=== PATIENT | female | born 1980 | race African-American/Black ===

== ENCOUNTER 2017-07-31 16:56 | Outpatient (CLI) | payer OTHER | END 2017-07-31 16:57 | disposition critical access hospital (66) | LOC: EMS 16:56 | PROVIDERS: ATTEND Surgery | DX: R51 Headache (principal) | CPT/HCPCS: A0425; A0429 ==

== ENCOUNTER 2017-07-31 17:30 | Emergency (ER) | payer OTHER ==
--- NOTE | 2017-07-31 17:39 | ED Physician Documentation ---
PD HPI HEADACHE - Stated complaint Stated Complaint: PRITCHARD - Chief complaint Chief Complaint: Neuro - History obtained from History obtained from: Patient, EMS - History of Present Illness Timing - onset: How many weeks ago (2 weeks of intermittent headache which has worsened and become persistent the past 2-3 days. Has nausea, light sensitivity , feeling of general weakness. No focal weakness. No injury. No fever nor URI symptoms.) Timing - onset during: Rest Timing - details: Gradual onset, Still present, Waxing and waning Worst headache ever?: Worst headache ever? (has had intermittent headaches with or without nausea and photophobia, with this one more persistent than prior ones.) Location: Front, Right Quality: Throbbing, Aching Associated symptoms: Nausea. No: Fever, Stiff neck, Vomiting, Weakness, Numbness, Vision changes Improved by: Rest, Dark room Worsened by: Light, Noise Contributing factors: No: Hypertension, Recent illness, Trauma Recently seen: Not recently seen Review of Systems Constitutional: denies: Fever, Chills Nose: denies: Rhinorrhea / runny nose, Congestion Throat: denies: Sore throat Respiratory: denies: Cough GI: reports: Nausea. denies: Abdominal Pain, Vomiting, Diarrhea Neurologic: reports: Generalized weakness. 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 - Present Medications Home Medications: Ambulatory Orders Medication Instructions Recorded Confirmed Aspirin/Acetaminophen/Caffeine 1 each PO .FREQ 07/31/17 07/31/17 [Excedrin Migraine Caplet] Dexamethasone [Decadron] 4 mg PO DAILY #5 tablet 07/31/17 HYDROcod/ACETAM 5/325 [Midnight 5/325] 1 tab PO Q6H PRN #15 tablet 07/31/17 Ondansetron Odt [Zofran] 4 mg TL Q6H PRN #15 tablet 07/31/17 - Allergies Allergies/Adverse Reactions: Allergies Allergy/AdvReac Type Severity Reaction Status Date / Time No Known Drug Allergies Allergy Verified 07/31/17 17:35 - Social History Does the pt smoke?: No Smoking Status: Never smoker Does the pt drink ETOH?: No Does the pt have substance abuse?: No - Immunizations Immunizations are current?: Yes PD ED PE NORMAL - General General: Alert and oriented X 3, Well developed/nourished, Other (light sensitive, seems uncomfortable. ) - HEENT HEENT: Atraumatic, PERRL, EOMI, Moist mucous membranes, Pharynx benign - Neck Neck: Supple, no meningeal sign, No adenopathy - Cardiac Cardiac: RRR, No murmur - Respiratory Respiratory: Clear bilaterally - Abdomen Abdomen: Soft, Non tender - Back Back: No CVA TTP - Derm Derm: Normal color, Warm and dry - Extremities Extremities: No deformity, No tenderness to palpate, Normal ROM s pain, No edema - Neuro Neuro: Alert and oriented X 3, crumb packer 2-12 intact, No motor deficit, No sensory deficit, Normal speech, Other Eye Opening: Spontaneous Motor: Obeys Commands Verbal: Oriented GCS Score: 15 - Psych Psych: Normal mood. No: Normal affect (somewhat flat) Results - Vitals Vitals: Vital Signs - 24 hr 07/31/17 07/31/17 17:32 20:14 Temperature 37.0 C 36.6 C Heart Rate 64 61 Respiratory 16 16 Rate Blood Pressure 122/82 H 124/73 O2 Saturation 100 100 Oxygen O2 Source Room air - Labs Labs: Laboratory Tests 07/31/17 07/31/17 07/31/17 18:05 18:05 18:05 WBC 9.4 RBC 4.39 Hgb 13.7 Hct 39.5 MCV 89.9 MCH 31.3 H MCHC 34.8 RDW 13.4 Plt Count 239 MPV 7.8 L Neut # 5.6 Lymph # 2.9 [place] # 0.7 Eos # 0.1 Baso # 0.1 Absolute Nucleated RBC 0.00 Nucleated RBC % 0.0 ESR 18 Sodium 138 Potassium 3.8 Chloride 103 Carbon Dioxide 24 Anion Gap 11.0 BUN 12 Creatinine 0.9 Estimated GFR (MDRD) 85 L Glucose 102 H Calcium 9.6 Total Bilirubin 0.9 AST 17 ALT 17 Alkaline Phosphatase 36 L Total Protein 7.5 Albumin 4.1 Globulin 3.4 Albumin/Globulin Ratio 1.2 Lipase 27 - Rads (name of study) head CT Radiology: Prelim report reviewed (no acute process) PD MEDICAL DECISION MAKING - ED course Complexity details: reviewed results, re-evaluated patient (Patient declined Toradol as avoids NSAIDs (I opined to her that a single dose of toradol would not significantly affect renal function). She did not want any meds that "make me feel drugged". So did not give antimigraine antiemetics nor opioid meds. Not much improvement with Ofirmev (like Tylenol at home earlier in the day). I offered Rx for meds, if she wanted later. Can try steroids to see if improves headache over course of this evening into tomorrow. ), considered differential ( presume functional headache such as migraine. Head CT and labs are okay. No trauma so not concussive; no infectious symptoms to suggest need for LP.), d/w patient Departure - Departure Disposition: Home, Self Care Clinical Impression: Headache Qualifiers: Headache type: unspecified Headache chronicity pattern: acute headache Intractability: intractable Qualified Code(s): R51 - Headache Condition: Stable Record reviewed to determine appropriate education?: Yes Instructions: ED Cephalgia Unspecified, ED Headache Migraine Follow-Up: AUGUST GOMEZ [Primary Care Provider] - Prescriptions: Dexamethasone [Decadron] 4 mg PO DAILY #5 tablet HYDROcod/ACETAM 5/325 [Midnight 5/325] 1 tab PO Q6H PRN #15 tablet PRN Reason: Pain Ondansetron Odt [Zofran] 4 mg TL Q6H PRN #15 tablet PRN Reason: Nausea / Vomiting Comments: Drink lots of fluids. Tylenol if needed for headache. Ondansetron if needed for nausea. I would suggest Decadron steroid daily for the next several days as this would treat migraine type headaches. He should not make you feel sedated or medicated. If your headache is significant enough to need stronger medicine, I prescribed hydrocodone to use every 4-6 hours for the short-term. This will make you feel sleepy. Recheck with your primary if not improved over the next couple of days. Your blood tests and CT scan appear normal and so I presume this is a migraine or tension type headache in the symptoms of it sound migraine like. Discharge Date/Time: 07/31/17 20:18
[2017-07-31] MEDS ORDERED: ONDANSETRON 4 MG/2 ML VIAL IVP STA (17:57)
[2017-07-31] MEDS ORDERED: KETOROLAC 60 MG/2 ML VIAL IVP STA (17:57)
[2017-07-31] MEDS ORDERED: SODIUM CHLORIDE 0.9% 1,000 ML IV ONE (18:00)
[2017-07-31 18:11] LABS: BASOPHILS # (AUTO) 0.1 10^3/uL (0.0-0.1); BASOPHILS % (AUTO) 0.9 %; EOSINOPHILS # (AUTO) 0.1 10^3/uL (0.0-0.7); EOSINOPHILS % (AUTO) 0.6 %; HCT - HEMATOCRIT 39.5 % (37.0-47.0); HGB - HEMOGLOBIN 13.7 g/dL (12.0-16.0); LYMPHOCYTES # (AUTO) 2.9 10^3/uL (1.5-3.5); LYMPHOCYTES % (AUTO) 31.3 %; MEAN CORPUSCULAR HEMOGLOBIN 31.3 pg (27.0-31.0); MEAN CORPUSCULAR HGB CONC 34.8 g/dL (32.0-36.0); MEAN CORPUSCULAR VOLUME 89.9 fL (81.0-99.0); MEAN PLATELET VOLUME 7.8 fL (7.9-10.8); MONOCYTES # (AUTO) 0.7 10^3/uL (0.0-1.0); MONOCYTES % (AUTO) 7.6 %; NEUTROPHILS # (AUTO) 5.6 10^3/uL (1.5-6.6); NEUTROPHILS % (AUTO) 59.6 %; RED BLOOD COUNT 4.39 10^6/uL (4.20-5.40); RED CELL DISTRIBUTION WIDTH 13.4 % (12.0-15.0); UNCORRECTED WHITE BLOOD COUNT 9.4 x10^3/uL; WHITE BLOOD COUNT 9.4 x10^3/uL (4.8-10.8)
[2017-07-31 18:24] LABS: ALBUMIN/GLOBULIN RATIO 1.2 (1.0-2.2); BILIRUBIN,TOTAL 0.9 mg/dL (0.2-1.0); CALCIUM 9.6 mg/dL (8.5-10.3); CREATININE 0.9 mg/dL (0.4-1.0); POTASSIUM 3.8 mmol/L (3.5-5.0); TOTAL PROTEIN 7.5 g/dL (6.7-8.2)
[2017-07-31] MEDS ORDERED: ACETAMINOPHEN 1,000 MG/100 ML 100 ML IV STA (18:30)
[2017-07-31] MEDS ORDERED: ACETAMINOPHEN 1,000 MG/100 ML 100 ML IV ONE (18:48)
--- NOTE | 2017-07-31 18:54 | CT Preliminary Report ---
Exam: CT HEAD W/O IMPRESSION: Normal head CT. [facility] SITE ID: [id number]
--- NOTE | 2017-07-31 18:57 | CT Report ---
EXAM: CT HEAD EXAM DATE: 07/31/2017 06:28 PM. CLINICAL HISTORY: Headache for 2 weeks. COMPARISON: 05/08/2014. TECHNIQUE: Multiaxial CT images were obtained from the foramen magnum to the vertex. Reformats: Coron al. IV contrast: None. In accordance with CT protocol optimization, one or more of the following dose reduction techniques w ere utilized for this exam: automated exposure control, adjustment of mA and/or KV based on patient s ize, or use of iterative reconstructive technique. FINDINGS: Parenchyma: No intraparenchymal hemorrhage. No evidence of mass, midline shift, or CT findings of inf arction. Benjamin-white differentiation is distinct. Extraaxial Spaces: Normal for age. No subdural or epidural collections. Ventricles: Normal in size and position. Sinuses and Orbits: Imaged paranasal sinuses, orbits, and mastoids show no significant abnormality. Bones: Unremarkable. Other: None. IMPRESSION: Normal head CT. [facility] Referring Provider Line: [phone] SITE ID: [id number]
[2017-07-31] MEDS ORDERED: DEXAMETHASONE 10 MG/ML VIAL IVP STA (19:38)
[2017-07-31] MEDS ORDERED: DEXAMETHASONE 10 MG/ML VIAL ONE (20:00)
[2017-07-31 20:15] VITALS: BP 124/73
== END 2017-07-31 20:18 | disposition home or self-care (01) ==
LOC: EDUNIT# → ED 17:30
DX: R51 Headache (principal)
CPT/HCPCS: 36415; 70450; 80053; 83690; 85025; 85651; 93005; 96365; 96375; 99283; J0131

== ENCOUNTER 2018-09-09 08:00 | Outpatient (CLI) | payer OTHER ==
[2018-09-09 12:57] LABS: ALBUMIN 4.2 g/dL (3.2-5.5); ALBUMIN/GLOBULIN RATIO 1.3 (1.0-2.2); BASOPHILS % (AUTO) 0.4 %; BILIRUBIN,TOTAL 0.6 mg/dL (0.2-1.0); CALCIUM 9.4 mg/dL (8.5-10.3); CREATININE 0.8 mg/dL (0.4-1.0); EOSINOPHILS % (AUTO) 0.4 %; HGB - HEMOGLOBIN 14.1 g/dL (12.0-16.0); LYMPHOCYTES % (AUTO) 32.3 %; MEAN CORPUSCULAR HEMOGLOBIN 30.7 pg (27.0-31.0); MEAN CORPUSCULAR HGB CONC 33.8 g/dL (32.0-36.0); MEAN CORPUSCULAR VOLUME 90.8 fL (81.0-99.0); MEAN PLATELET VOLUME 8.6 fL (7.9-10.8); MONOCYTES # (AUTO) 0.7 10^3/uL (0.0-1.0); MONOCYTES % (AUTO) 7.1 %; NEUTROPHILS # (AUTO) 5.6 10^3/uL (1.5-6.6); NEUTROPHILS % (AUTO) 59.8 %; PLT - PLATELET COUNT 270 10^3/uL (130-450); RED BLOOD COUNT 4.58 10^6/uL (4.20-5.40); RED CELL DISTRIBUTION WIDTH 13.9 % (12.0-15.0); TOTAL PROTEIN 7.4 g/dL (6.7-8.2); WHITE BLOOD COUNT 9.4 x10^3/uL (4.8-10.8)
[2018-09-09 19:04] LABS: BILIRUBIN,URINE NEGATIVE (NEGATIVE); GLUCOSE, URINE (UA) NEGATIVE (NEGATIVE); KETONES,URINE (UA) NEGATIVE (NEGATIVE); LEUKOCYTE ESTERASE, URINE NEGATIVE (NEGATIVE); NITRITE,URINE NEGATIVE (NEGATIVE); OCCULT BLOOD,URINE NEGATIVE (NEGATIVE); PROTEIN,URINE NEGATIVE (NEGATIVE); UROBILINOGEN,URINE 0.2 (NORMAL) E.U./dL (NORMAL)
[2018-09-09 19:48] LABS: BACTERIA,URINE None Seen /HPF (None Seen); CLARITY,URINE CLEAR (CLEAR); RBC,URINE None Seen /HPF (0-5); SQUAMOUS EPITHELIAL CELL,UR FEW Squamous (<= Few)
== END 2018-09-09 23:59 | disposition home or self-care (01) ==
LOC: LAB.WCP 08:00
PROVIDERS: ATTEND Internal Medicine Rheumatology
DX: R76.8 Other specified abnormal immunological findings in serum (principal)
CPT/HCPCS: 36415; 80053; 81001; 85025; 85651

== ENCOUNTER 2018-10-23 15:24 | Outpatient (CLI) | payer OTHER ==
[2018-10-23] MEDS ORDERED: GADOBUTROL 7.5 MMOL/7.5 ML VIAL ONE (15:55)
[2018-10-23] MEDS ORDERED: GADOBUTROL 7.5 MMOL/7.5 ML VIAL IVP ONE (17:27)
--- NOTE | 2018-10-24 16:23 | MRI Report ---
Reason: DI Procedure Date: 10/23/2018 Accession Number: [id number] / [id number] Procedure: MRI - Femur/Thigh LT W/WO CPT Code: FULL RESULT: EXAM: LEFT FEMUR/THIGH MRI WITHOUT AND WITH CONTRAST EXAM DATE: 10/23/2018 04:31 PM. CLINICAL HISTORY: Localized mass, swelling or lump in the mid left thigh. COMPARISON: None. TECHNIQUE: Multiplanar, multisequence T1-weighted and fluid-sensitive sequences of the thigh before and after administration of intravenous contrast. IV contrast: 7 mL Gadavist given IV, no reaction. Other: None. FINDINGS: Bones: No fractures or subluxations. No marrow edema or abnormal enhancement. No bone lesions. Joint Spaces: Visualized portions of the hip and knee joints are unremarkable on these large ipybi-wr-amrx images. Tendons: The visualized hamstring origins are unremarkable. Musculature: No edema, enhancement, or fatty atrophy. Other: The visualized sciatic and femoral nerves are unremarkable. The subcutaneous tissues are unremarkable. No abscess or cellulitis. Several markers are seen in the mid anterior and lateral thigh in the presumed region of focal concern. In this location, no masses, no nodules. Normal enhancement. Normal signal of muscle bundles of the thigh. Also, sciatic nerve and femoral neurovascular components are also normal. IMPRESSION: 1. Overall, unremarkable exam. No nodules or masses. [facility] MUSCULOSKELETAL RADIOLOGY SECTION
== END 2018-10-23 15:25 | disposition home or self-care (01) ==
LOC: DI 15:24
PROVIDERS: ATTEND Orthopaedic Surgery
DX: R22.42 Localized swelling, mass and lump, left lower limb (principal)
CPT/HCPCS: 73720; A9585

== ENCOUNTER 2018-11-04 09:34 | Outpatient (CLI) | payer OTHER ==
[2018-11-04] MEDS ORDERED: BUFFERED LIDOCAINE 10 ML SYRINGE ONE (09:53)
[2018-11-04] MEDS ORDERED: IOTHALAMATE MEGLUMINE 50 ML VIAL ONE (09:53)
[2018-11-04] MEDS ORDERED: GADOPENTETATE DIMEGLUMINE 5 ML VIAL IVP ONE ×2 (10:57→11:46)
[2018-11-04] MEDS ORDERED: IOTHALAMATE MEGLUMINE 50 ML VIAL IVP ONE (11:46)
[2018-11-04] MEDS ORDERED: BUFFERED LIDOCAINE 10 ML SYRINGE IU ONE (11:46)
--- NOTE | 2018-11-04 12:17 | XRAY Report ---
Reason: PAIN IN UNSPECIFIED HIP,LOCALIZED SWELLING,MASS AN Procedure Date: 11/04/2018 Accession Number: [id number] / [id number] Procedure: FL - Arthrogram Needle Placement CPT Code: FULL RESULT: EXAM: LEFT HIP ARTHROGRAPHIC INJECTION WITH FLUOROSCOPIC GUIDANCE EXAM DATE: 11/04/2018 11:13 AM. CLINICAL HISTORY: Pain in unspecified hip, localized swelling, mass. COMPARISON: ARTHROGRAM HIP 11/04/2018 10:14 AM. TECHNIQUE: The risks, benefits, and alternatives of the procedure were discussed with the patient. All questions were answered. Written and verbal consent were obtained. The hip joint was marked under fluoroscopy and prepped and draped in a sterile manner. Local anesthesia was performed with 1% lidocaine. A 22-gauge needle was then inserted into the hip joint. 10 mL of a solution containing 25% 1% lidocaine, 25% iodinated contrast, and a 1:200 dilution of gadolinium contrast in sterile saline was then injected. The needle was removed without immediate complication. Other: None. Fluoroscopy Time: 58 seconds. Number of Images: 2. FINDINGS: Bones and Joints: No fracture or subluxation. Injection: Fluoroscopic images demonstrate needle placement and contrast in the hip joint. IMPRESSION: Successful fluoroscopically guided arthrographic injection of the hip. [facility]
--- NOTE | 2018-11-04 19:31 | MRI Report ---
Reason: PAIN IN UNSPECIFIED HIP,LOCALIZED SWELLING,MASS AN Procedure Date: 11/04/2018 Accession Number: [id number] / [id number] Procedure: MRI - Arthrogram Hip LT CPT Code: FULL RESULT: EXAM: LEFT HIP MRI ARTHROGRAM WITH CONTRAST EXAM DATE: 11/04/2018 11:43 AM. CLINICAL HISTORY: Left hip pain. COMPARISON: None. TECHNIQUE: Multiplanar, multisequence T1-weighted and fluid-sensitive, small xiqms-sw-lhgy sequences of the hip and large rxyzs-id-luiu sequences of the pelvis after an arthrographic injection of dilute gadolinium, dictated under a separate exam. Other: None. FINDINGS: Bones: No fractures or subluxations. No marrow edema or bone lesions. Left Hip: No acetabular retroversion. Femoral head/neck offset is within normal limits. No loose bodies. The articular cartilage is intact. The labrum is intact. The ligamentum teres is intact. Other Joints: The visualized lumbar spine, sacroiliac joints, symphysis pubis, and contralateral hip are unremarkable. Musculature: No edema or fatty atrophy. The gluteus medius and minimus tendons are normal. The visualized hamstring tendons are normal. The ischiofemoral space is normal. Pelvic Cavity: Previous hysterectomy. Otherwise, visualized viscera are unremarkable. No lymphadenopathy. No free fluid in the pelvis. Other: The visualized sciatic nerves are unremarkable. No bursitis. The subcutaneous tissues are unremarkable. IMPRESSION: No MRI abnormalities in the hip and visualized pelvis. [facility] MUSCULOSKELETAL RADIOLOGY SECTION
== END 2018-11-04 09:35 | disposition home or self-care (01) ==
LOC: DI 09:34
PROVIDERS: ATTEND Orthopaedic Surgery
DX: M25.552 Pain in left hip (principal)
CPT/HCPCS: 27093; 73722; 77002; Q9961

== ENCOUNTER 2018-12-28 16:40 | Emergency (ER) | payer OTHER ==
[2018-12-28] MEDS ORDERED: LIDOCAINE VISCOUS 2% 15 ML UDC MM STA (17:47)
--- NOTE | 2018-12-28 17:50 | ED Physician Documentation ---
PD HPI CHEST PAIN - Stated complaint Stated Complaint: CP/SOA/L ARM NUMBNESS - Chief complaint Chief Complaint: Cardiac - History obtained from History obtained from: Patient - History of Present Illness Timing - onset: How many hours ago (2) Timing - onset during: Light activity (driving) Timing - details: Still present Pain level max: 5 Pain level now: 5 Location: Substernal Radiation: Left upper extremity Associated symptoms: Shortness of air, Nausea Similar symptoms before: Has not had sx before - Additional information Additional information: The patient is a 38-year-old female who presents with substernal chest pain radiating to her left arm. Her pain started about 2 hours prior to arrival while driving. She reports associated shortness of breath and nausea. She denies vomiting or diaphoresis. She reports slight improvement after drinking debby lei. She denies history of similar symptoms in the past. She started a new vitamin pack this morning that includes caffeine, antioxidant, and fish oil. She also drank a cup of coffee prior to the onset of her symptoms. Cardiac risk factors are negative for cigarette smoking, hypertension, diabetes, hyperlipidemia, or family history of early AL. Review of Systems Constitutional: reports: Fatigue. denies: Fever Ears: denies: Tinnitus/ringing Nose: denies: Congestion Throat: denies: Sore throat Cardiac: reports: Chest pain / pressure. denies: Palpitations Respiratory: reports: Dyspnea (mild). denies: Cough GI: reports: Nausea. 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 - Present Medications Home Medications: Ambulatory Orders Medication Instructions Recorded Confirmed Aspirin/Acetaminophen/Caffeine 1 each PO .FREQ 07/31/17 07/31/17 [Excedrin Migraine Caplet] Dexamethasone [Decadron] 4 mg PO DAILY #5 tablet 07/31/17 HYDROcod/ACETAM 5/325 [[place] 5/325] 1 tab PO Q6H PRN #15 tablet 11/30/17 Ondansetron Odt [Zofran] 4 mg TL Q6H PRN #15 tablet 07/31/17 - Allergies Allergies/Adverse Reactions: Allergies Allergy/AdvReac Type Severity Reaction Status Date / Time No Known Drug Allergies Allergy Verified 07/31/17 17:35 - Social History Does the pt smoke?: No Smoking Status: Never smoker Does the pt drink ETOH?: No Does the pt have substance abuse?: No - Immunizations Immunizations are current?: Yes PD ED PE NORMAL - Vitals Vital signs reviewed: Yes (Borderline hypertension initially.) - General General: Alert and oriented X 3, Well developed/nourished - HEENT HEENT: Atraumatic, Pharynx benign - Neck Neck: No adenopathy, No JVD - Cardiac Cardiac: RRR, No murmur - Respiratory Respiratory: No respiratory distress, Clear bilaterally - Abdomen Abdomen: Soft, Non tender - Back Back: No CVA TTP - Derm Derm: No rash - Extremities Extremities: No edema, No calf tenderness / cord - Neuro Neuro: Alert and oriented X 3, No motor deficit, Normal speech Results - Vitals Vitals: Vital Signs - 24 hr 12/28/18 12/28/18 16:51 18:19 Temperature 36.6 C Heart Rate 73 73 Respiratory 16 16 Rate Blood Pressure 137/87 H 149/84 H O2 Saturation 99 98 Oxygen O2 Source Room air - EKG (time done) 16:53 Rate: Rate (enter#) (76) Rhythm: NSR [place]: Normal Intervals: Normal [place] QRS: Normal Ischemia: Normal ST segments Computer interpretation: Agree with computer - Labs Labs: Laboratory Tests 12/28/18 12/28/18 12/28/18 17:55 17:55 17:55 WBC 9.0 RBC 4.61 Hgb 13.7 Hct 41.5 MCV 89.9 MCH 29.8 MCHC 33.1 RDW 13.7 Plt Count 287 MPV 7.9 Neut # (Auto) 4.9 Lymph # (Auto) 3.5 [place] # (Auto) 0.5 Eos # (Auto) 0.0 Baso # (Auto) 0.1 Absolute Nucleated RBC 0.00 Nucleated RBC % 0.0 Sodium 138 Potassium 3.6 Chloride 102 Carbon Dioxide 25 Anion Gap 11.0 BUN 11 Creatinine 0.9 Estimated GFR (MDRD) 84 L Glucose 95 Calcium 9.5 Total Bilirubin 0.9 AST 17 ALT 20 Alkaline Phosphatase 35 L Troponin I < 0.04 Total Protein 7.6 Albumin 4.4 Globulin 3.2 Albumin/Globulin Ratio 1.4 Lipase 27 - Rads (name of study) Portable CXR Radiology: Prelim report reviewed, EMP read contemporaneously, See rad report (Normal single view chest.) PD MEDICAL DECISION MAKING - ED course Complexity details: reviewed results, re-evaluated patient, considered differential, d/w patient, d/w family ED course: The patient's presentation is most consistent with esophageal chest pain. I think exacerbating factors include the vitamin pack that she started today which included caffeine, fish oil, and antioxidant. I doubt cardiac etiology, and her EKG and cardiac enzymes are normal. Chest x-ray is negative. Treatment in the emergency department included GI cocktail which improved her symptoms. I discussed with her the diagnosis, symptomatic treatment and outpatient follow-up, as well as potentially worrisome signs or symptoms that should prompt reevaluation in the emergency department. Departure - Departure Disposition: 01 Home, Self Care Clinical Impression: Atypical chest pain Condition: Stable Instructions: ED Chest Pain NonCardiac Follow-Up: AUGUST GOMEZ [Primary Care Provider] - Comments: Consider discontinuing the vitamin supplement that you had started earlier today. If you develop recurrent symptoms try drinking liquid antacid, such as Maalox or Mylanta. Follow-up with your primary physician within 2 weeks. Call to schedule an appointment. Return to the emergency department if you develop increasing chest pain, shortness of breath, persistent vomiting, or otherwise worsening symptoms.
[2018-12-28] MEDS: MAG HYDROX/AL HYDROX/SIMETH 30 ML UDC PO STA ×2 (18:06→18:46)
[2018-12-28 18:11] LABS: BASOPHILS # (AUTO) 0.1 10^3/uL (0.0-0.1); BASOPHILS % (AUTO) 0.7 %; EOSINOPHILS % (AUTO) 0.3 %; HGB - HEMOGLOBIN 13.7 g/dL (12.0-16.0); LYMPHOCYTES # (AUTO) 3.5 10^3/uL (1.5-3.5); LYMPHOCYTES % (AUTO) 38.5 %; MEAN CORPUSCULAR HEMOGLOBIN 29.8 pg (27.0-31.0); MEAN CORPUSCULAR HGB CONC 33.1 g/dL (32.0-36.0); MEAN CORPUSCULAR VOLUME 89.9 fL (81.0-99.0); MEAN PLATELET VOLUME 7.9 fL (7.9-10.8); MONOCYTES # (AUTO) 0.5 10^3/uL (0.0-1.0); MONOCYTES % (AUTO) 5.5 %; NEUTROPHILS # (AUTO) 4.9 10^3/uL (1.5-6.6); PLT - PLATELET COUNT 287 10^3/uL (130-450); RED BLOOD COUNT 4.61 10^6/uL (4.20-5.40); RED CELL DISTRIBUTION WIDTH 13.7 % (12.0-15.0)
[2018-12-28 18:19] VITALS: BP 149/84
--- NOTE | 2018-12-28 18:20 | XRAY Report ---
Reason: chest pain Procedure Date: 12/28/2018 Accession Number: [id number] / [id number] Procedure: XR - Chest 1 View X-Ray CPT Code: 83473 FULL RESULT: EXAM: CHEST RADIOGRAPHY EXAM DATE: 12/28/2018 06:10 PM. CLINICAL HISTORY: Chest pain. COMPARISON: None. TECHNIQUE: 1 view. FINDINGS: Lungs/Pleura: No focal opacities evident. No pleural effusion. No pneumothorax. Mediastinum: Within exam limitations, the cardiomediastinal contour is normal. Other: None. IMPRESSION: Normal single view chest. [facility]
[2018-12-28 18:28] LABS: ALBUMIN 4.4 g/dL (3.2-5.5); ALBUMIN/GLOBULIN RATIO 1.4 (1.0-2.2); BILIRUBIN,TOTAL 0.9 mg/dL (0.2-1.0); CALCIUM 9.5 mg/dL (8.5-10.3); CREATININE 0.9 mg/dL (0.4-1.0); TOTAL PROTEIN 7.6 g/dL (6.7-8.2)
== END 2018-12-28 19:08 | disposition home or self-care (01) ==
LOC: ED 16:40
DX: R07.89 Other chest pain (principal)
CPT/HCPCS: 36415; 71045; 80053; 83690; 84484; 85025; 93005; 99283; 99284; A9270

== ENCOUNTER 2019-04-15 16:31 | Outpatient (CLI) | payer OTHER | END 2019-04-15 16:32 | disposition critical access hospital (66) | LOC: EMS 16:31 | PROVIDERS: ATTEND Surgery | DX: R42 Dizziness and giddiness (principal); R11.0 Nausea | CPT/HCPCS: A0425; A0427 ==

== ENCOUNTER 2019-04-15 16:53 | Emergency (ER) | payer OTHER ==
[2019-04-15] MEDS ORDERED: LORazepam 2 MG/ML VIAL IVP STA (17:04)
--- NOTE | 2019-04-15 17:08 | ED Physician Documentation ---
History of Present Illness - Stated complaint Stated Complaint: DIZZY/ CHEST TIGHTNESS - Chief complaint Chief Complaint: General - History obtained from History obtained from: Patient - History of Present Illness Timing: Today (38-year-old woman is status post remote hysterectomy presents with chest pain that started today at work. It is a hot burning pressure pain in the anterior chest with numbness and tingling in both feet and left greater than right arm. She feels hot and nauseous and like she is going to pass out. She had a similar but less severe episode a couple of months ago and was di agnosed I think with esophageal spasm. Work-up at that time was negative.) Review of Systems Ten Systems: 10 systems reviewed and negative Constitutional: denies: Fever, Chills Cardiac: reports: Chest pain / pressure. denies: Palpitations Respiratory: reports: Dyspnea. denies: Cough GI: reports: Nausea. 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 - Present Medications Home Medications: Ambulatory Orders Medication Instructions Recorded Confirmed Aspirin/Acetaminophen/Caffeine 1 each PO .FREQ 07/31/17 07/31/17 [Excedrin Migraine Caplet] HYDROcod/ACETAM 5/325 [[place] 5/325] 1 tab PO Q6H PRN #15 tablet 07/31/17 Ondansetron Odt [Zofran] 4 mg TL Q6H PRN #15 tablet 07/31/17 dexAMETHasone [Decadron] 4 mg PO DAILY #5 tablet 07/31/17 Lorazepam [Ativan] 1 mg PO TID PRN #10 tablet 04/15/19 - Allergies Allergies/Adverse Reactions: Allergies Allergy/AdvReac Type Severity Reaction Status Date / Time No Known Drug Allergies Allergy Unverified 04/15/19 16:54 - Social History Does the pt smoke?: No Smoking Status: Never smoker Does the pt drink ETOH?: No Does the pt have substance abuse?: No - Immunizations Immunizations are current?: Yes PD ED PE NORMAL - Vitals Vital signs reviewed: Yes - General General: Alert and oriented X 3, Other (She appears visibly anxious and shaky) - HEENT HEENT: PERRL, EOMI - Neck Neck: Supple, no meningeal sign, No bony TTP - Cardiac Cardiac: RRR, No murmur - Respiratory Respiratory: No respiratory distress, Clear bilaterally - Abdomen Abdomen: Non tender - Extremities Extremities: No edema, No calf tenderness / cord - Neuro Neuro: Alert and oriented X 3, Normal speech Results - Vitals Vitals: Vital Signs - 24 hr 04/15/19 16:54 Temperature 36.8 C Heart Rate 92 Respiratory 20 Rate Blood Pressure 131/84 H O2 Saturation 100 Oxygen O2 Source Room air - EKG (time done) 1705 Rate: Rate (enter#) (71) Rhythm: NSR [place]: Normal Intervals: Normal [place] QRS: Normal Ischemia: Normal ST segments Computer interpretation: Agree with computer - Labs Labs: Laboratory Tests 04/15/19 04/15/19 04/15/19 17:20 17:20 17:20 WBC 10.2 RBC 4.28 Hgb 13.2 Hct 38.6 MCV 90.2 MCH 30.8 MCHC 34.2 RDW 13.3 Plt Count 261 MPV 9.6 Neut # (Auto) 5.3 Lymph # (Auto) 4.1 H [place] # (Auto) 0.7 Eos # (Auto) 0.0 Baso # (Auto) 0.1 Absolute Nucleated RBC 0.00 Nucleated RBC % 0.0 VBG pH VBG pCO2 VBG pO2 VBG HCO3 VBG Total CO2 VBG O2 Saturation VBG Base Excess Sodium 139 Potassium 3.2 L Chloride 104 Carbon Dioxide 19 L Anion Gap 16.0 H BUN 11 Creatinine 1.0 Estimated GFR (MDRD) 75 L Glucose 131 H Calcium 9.4 Total Bilirubin 0.8 AST 21 ALT 17 Alkaline Phosphatase 32 L Troponin I High Sens 2.9 Total Protein 7.5 Albumin 4.1 Globulin 3.4 Albumin/Globulin Ratio 1.2 Lipase 32 04/15/19 17:20 WBC RBC Hgb Hct MCV MCH MCHC RDW Plt Count MPV Neut # (Auto) Lymph # (Auto) [place] # (Auto) Eos # (Auto) Baso # (Auto) Absolute Nucleated RBC Nucleated RBC % VBG pH 7.513 H VBG pCO2 24.7 L VBG pO2 33.3 VBG HCO3 19.4 L VBG Total CO2 20.2 L VBG O2 Saturation 74.5 VBG Base Excess -1.8 Sodium Potassium Chloride Carbon Dioxide Anion Gap BUN Creatinine Estimated GFR (MDRD) Glucose Calcium Total Bilirubin AST ALT Alkaline Phosphatase Troponin I High Sens Total Protein Albumin Globulin Albumin/Globulin Ratio Lipase PD MEDICAL DECISION MAKING - ED course ED course: 38-year-old woman with chest pain, examination most consistent with anxiety which is corroborated on a venous gas here. High-sensitivity troponin was negative and EKG completely nonischemic. I considered pulmonary embolism in this patient. Clinically the pretest probability of pulmonary embolism is less than 15%. I applied to the PERC rules as follows: The patient's age is under 50, heart rate less than 100, oxygen saturation greater than 94%, the patient does not have a history of DVT or PE. Patient has no recent trauma or surgery. The patient has no hemoptysis. The patient is not on exogenous estrogens. The patient does not have clinical signs suggesting DVT. As such the patient ruled out for pulmonary embolism by PERC criteria. I considered aortic dissection in this patient. The patient has a much more likely alternative diagnosis. The patient has equal radial and pedal pulses and has no neurologic symptoms. Departure - Departure Disposition: 01 Home, Self Care Clinical Impression: Atypical chest pain Condition: Good Record reviewed to determine appropriate education?: Yes Instructions: ED Chest Pain NonCardiac Prescriptions: Lorazepam [Ativan] 1 mg PO TID PRN #10 tablet PRN Reason: Anxiety Comments: Return for new or worsening symptoms. Follow-up with your doctor, consider follow-up stress testing. No driving tonight.
[2019-04-15 17:25] LABS: VBG BASE EXCESS -1.8 mmol/L (-2 - +2); VBG PCO2 24.7 mmHg (41-51); VBG PH 7.513 (7.31-7.41); VBG PO2 33.3 mmHg (25-47); VBG TOTAL CO2 20.2 mmol/L (24-29)
[2019-04-15 17:29] LABS: BASOPHILS # (AUTO) 0.1 10^3/uL (0.0-0.1); BASOPHILS % (AUTO) 0.6 %; EOSINOPHILS % (AUTO) 0.4 %; HGB - HEMOGLOBIN 13.2 g/dL (12.0-16.0); LYMPHOCYTES # (AUTO) 4.1 10^3/uL (1.5-3.5); MEAN CORPUSCULAR HEMOGLOBIN 30.8 pg (27.0-31.0); MEAN CORPUSCULAR HGB CONC 34.2 g/dL (32.0-36.0); MEAN CORPUSCULAR VOLUME 90.2 fL (81.0-99.0); MEAN PLATELET VOLUME 9.6 fL (7.9-10.8); MONOCYTES # (AUTO) 0.7 10^3/uL (0.0-1.0); MONOCYTES % (AUTO) 6.4 %; NEUTROPHILS # (AUTO) 5.3 10^3/uL (1.5-6.6); NEUTROPHILS % (AUTO) 52.2 %; PLT - PLATELET COUNT 261 10^3/uL (130-450); RED BLOOD COUNT 4.28 10^6/uL (4.20-5.40); RED CELL DISTRIBUTION WIDTH 13.3 % (12.0-15.0); WHITE BLOOD COUNT 10.2 x10^3/uL (4.8-10.8)
--- NOTE | 2019-04-15 17:50 | XRAY Report ---
Reason: chest pain Procedure Date: 04/15/2019 Accession Number: [id number] / [id number] Procedure: XR - Chest 1 View X-Ray CPT Code: 57523 FULL RESULT: EXAM: CHEST RADIOGRAPHY EXAM DATE: 04/15/2019 05:20 PM. CLINICAL HISTORY: Chest pain. COMPARISON: CHEST 1 VIEW 12/28/2018 5:54 PM. TECHNIQUE: 1 view. FINDINGS: LUNGS: The lungs are clear. PLEURA: No significant pleural effusion. No clinically significant pneumothorax. MEDIASTINUM: The cardiomediastinal silhouette is unremarkable. BONES: No displaced acute fracture. No suspicious osseous lesions. IMPRESSION: No acute disease. RADIA
[2019-04-15 17:52] LABS: ALBUMIN 4.1 g/dL (3.2-5.5); ALBUMIN/GLOBULIN RATIO 1.2 (1.0-2.2); BILIRUBIN,TOTAL 0.8 mg/dL (0.2-1.0); CALCIUM 9.4 mg/dL (8.5-10.3); TOTAL PROTEIN 7.5 g/dL (6.7-8.2)
[2019-04-15 18:38] VITALS: BP 116/79
== END 2019-04-15 18:55 | disposition home or self-care (01) ==
LOC: EDUNIT# → ED 16:53
DX: R07.89 Other chest pain (principal)
CPT/HCPCS: 36415; 71045; 80053; 82803; 83690; 84484; 85025; 93005; 96374; 99284; J2060

== ENCOUNTER 2019-08-27 20:28 | Emergency (ER) | payer OTHER ==
[2019-08-27 21:27] LABS: ALBUMIN 4.4 g/dL (3.2-5.5); ALBUMIN/GLOBULIN RATIO 1.5 (1.0-2.2); BILIRUBIN,TOTAL 0.7 mg/dL (0.2-1.0); CALCIUM 9.7 mg/dL (8.5-10.3); CREATININE 0.9 mg/dL (0.4-1.0); TOTAL PROTEIN 7.4 g/dL (6.7-8.2)
[2019-08-27 21:49] LABS: BASOPHILS # (AUTO) 0.1 10^3/uL (0.0-0.1); BASOPHILS % (AUTO) 0.4 %; EOSINOPHILS # (AUTO) 0.1 10^3/uL (0.0-0.7); EOSINOPHILS % (AUTO) 0.5 %; HGB - HEMOGLOBIN 13.5 g/dL (12.0-16.0); LYMPHOCYTES # (AUTO) 4.2 10^3/uL (1.5-3.5); LYMPHOCYTES % (AUTO) 36.6 %; MEAN CORPUSCULAR HEMOGLOBIN 29.9 pg (27.0-31.0); MEAN CORPUSCULAR HGB CONC 32.5 g/dL (32.0-36.0); MEAN CORPUSCULAR VOLUME 92.2 fL (81.0-99.0); MEAN PLATELET VOLUME 9.9 fL (7.9-10.8); MONOCYTES # (AUTO) 0.7 10^3/uL (0.0-1.0); NEUTROPHILS # (AUTO) 6.4 10^3/uL (1.5-6.6); NEUTROPHILS % (AUTO) 56.1 %; PLT - PLATELET COUNT 292 10^3/uL (130-450); RED BLOOD COUNT 4.51 10^6/uL (4.20-5.40); RED CELL DISTRIBUTION WIDTH 13.3 % (12.0-15.0); WHITE BLOOD COUNT 11.4 x10^3/uL (4.8-10.8)
--- NOTE | 2019-08-27 21:50 | ED Physician Documentation ---
PD HPI CHEST PAIN - Stated complaint Stated Complaint: CP/SOA - Chief complaint Chief Complaint: Cardiac - History obtained from History obtained from: Patient - History of Present Illness Timing - onset: How many hours ago (1), Today Timing - onset during: Light activity Timing - duration: Hours (1) Timing - details: Waxing and waning Quality: Tightness, Aching Location: Left chest, Left shoulder/arm Radiation: Left upper extremity Improved by: No: Rest Worsened by: No: Inspiration, Movement Associated symptoms: Feeling faint / dizzy, Palpitations. No: Shortness of air, Nausea Similar symptoms before: No diagnosis (She has had similar episodes 3-4 times over the last 6 months and seen in the ER 2 or 3 times for it with normal EKGs x-ray and blood tests. On an occasion in April she had improvement with a GI cocktail. She had seen her primary care early August and placed on pantoprazole for a lot of heartburn symptoms.) Review of Systems Constitutional: denies: Fever, Chills, Myalgias Nose: denies: Rhinorrhea / runny nose, Congestion Throat: denies: Sore throat Cardiac: reports: Chest pain / pressure, Palpitations. denies: Pedal edema, Calf pain Respiratory: denies: Dyspnea, Cough GI: denies: Nausea, Vomiting, Diarrhea Neurologic: reports: Near syncope (feeling of lightheaded). 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 : Other HEENT: None Psych: None Musculoskeletal: None Derm: None - Past Surgical History Past Surgical History: Yes General: Cholecystectomy /SENIOR PROFESSIONAL SERVICES CONSULTANT: section, Hysterectomy - Present Medications Home Medications: Ambulatory Orders Medication Instructions Recorded Confirmed Aspirin/Acetaminophen/Caffeine 1 each PO .FREQ 07/31/17 07/31/17 [Excedrin Migraine Caplet] HYDROcod/ACETAM 5/325 [[place] 5/325] 1 tab PO Q6H PRN #15 tablet 07/31/17 Ondansetron Odt [Zofran] 4 mg TL Q6H PRN #15 tablet 07/31/17 dexAMETHasone [Decadron] 4 mg PO DAILY #5 tablet 07/31/17 Lorazepam [Ativan] 1 mg PO TID PRN #10 tablet 04/15/19 Lidocaine Viscous 2% [Xylocaine 5 ml PO Q4H PRN #100 ml 08/27/19 Viscous 2%] Sucralfate [Carafate] 1 gm PO TID #30 tablet 08/27/19 - Allergies Allergies/Adverse Reactions: Allergies Allergy/AdvReac Type Severity Reaction Status Date / Time No Known Drug Allergies Allergy Verified 08/27/19 20:42 - Social History Does the pt smoke?: No Smoking Status: Never smoker Does the pt drink ETOH?: No Does the pt have substance abuse?: No - Family History Family history: denies: CAD, Aortic aneursym, Aortic dissection - Immunizations Immunizations are current?: Yes PD ED PE NORMAL - Vitals Vital signs reviewed: Yes - General General: Alert and oriented X 3, No acute distress, Well developed/nourished - HEENT HEENT: Moist mucous membranes, Pharynx benign - Neck Neck: Supple, no meningeal sign - Cardiac Cardiac: RRR, No murmur, No rub, Other (some chest wall tenderness left anterior chest and left sternal border) - Respiratory Respiratory: Clear bilaterally - Abdomen Abdomen: Normal bowel sounds, Soft, Non distended, No organomegaly - Female Female : Deferred - Rectal Rectal: Deferred - Derm Derm: Normal color, Warm and dry - Extremities Extremities: No tenderness to palpate, Normal ROM s pain, No edema, No calf tenderness / cord - Neuro Neuro: Alert and oriented X 3, No motor deficit, Normal speech Results - Vitals Vitals: Vital Signs - 24 hr 08/27/19 08/27/19 08/27/19 20:39 22:50 23:02 Temperature 37.0 C 36.6 C Heart Rate 92 71 Respiratory 17 12 Rate Blood Pressure 141/81 H 104/71 O2 Saturation 99 100 Oxygen O2 Source Room air - EKG (time done) 20:33 Rate: Rate (enter#) (78) Rhythm: NSR [place]: Normal Intervals: Normal [place] QRS: Normal Ischemia: Normal ST segments. No: ST elevation c/w ischemia, ST depression Compare to prior EKG: Unchanged from prior EKG - Labs Labs: Laboratory Tests 08/27/19 08/27/19 08/27/19 21:08 21:08 21:08 WBC 11.4 H RBC 4.51 Hgb 13.5 Hct 41.6 MCV 92.2 MCH 29.9 MCHC 32.5 RDW 13.3 Plt Count 292 MPV 9.9 Neut # (Auto) 6.4 Lymph # (Auto) 4.2 H Lipscomb # (Auto) 0.7 Eos # (Auto) 0.1 Baso # (Auto) 0.1 Absolute Nucleated RBC 0.00 Nucleated RBC % 0.0 Sodium 140 Potassium 3.4 L Chloride 102 Carbon Dioxide 29 Anion Gap 9.0 BUN 10 Creatinine 0.9 Estimated GFR (MDRD) 84 L Glucose 124 H Calcium 9.7 Total Bilirubin 0.7 AST 20 ALT 21 Alkaline Phosphatase 35 L Troponin I High Sens < 2.3 L Total Protein 7.4 Albumin 4.4 Globulin 3.0 Albumin/Globulin Ratio 1.5 Lipase 36 - Rads (name of study) chest xray Radiology: Prelim report reviewed (no acute process), See rad report PD MEDICAL DECISION MAKING - ED course Complexity details: re-evaluated patient (Moderate improvement with a GI cocktail though still some tenderness and pain to the left chest.), considered differential (This might be reflux with some esophagitis. There is a element of chest wall tenderness on the left anterior chest so consider some muscular skeletal component. Will check EKG and troponin for heart related. Check chest x-ray for left. I have low clinical suspicion for vascular processes such as dissection or PE.), d/w patient Departure - Departure Disposition: 01 Home, Self Care Clinical Impression: Esophagitis Chest pain Qualifiers: Chest pain type: precordial pain Qualified Code(s): R07.2 - Precordial pain Condition: Stable Record reviewed to determine appropriate education?: Yes Instructions: ED Chest Pain Atypical Unkn Cause Follow-Up: GRZEGORZ HARLEY MD [Primary Care Provider] - Prescriptions: Lidocaine Viscous 2% [Xylocaine Viscous 2%] 5 ml PO Q4H PRN #100 ml PRN Reason: Pain Sucralfate [Carafate] 1 gm PO TID #30 tablet Comments: No signs of heart or lung causes of the pain based on your x-ray EKG and blood test. I presume some element of is from irritation of the esophagus and the reflux. Continue your pantoprazole. Add sacral fate 3-4 times a day for the next week. You can also add a lidocaine with an antacid such as Maalox or Mylanta periodically if needed for the chest discomfort. Some element may be muscular to since there is some tenderness in the chest wa ll. Use Tylenol every 4 hours if needed for that pain. Recheck with your primary care in the next several days if not improved well. Discharge Date/Time: 08/27/19 23:07
[2019-08-27] MEDS ORDERED: MAG HYDROX/AL HYDROX/SIMETH 30 ML UDC PO STA (22:04)
[2019-08-27] MEDS ORDERED: ACETAMINOPHEN 325 MG TABLET PO STA (22:04)
[2019-08-27] MEDS ORDERED: LIDOCAINE VISCOUS 2% 15 ML UDC MM STA (22:04)
--- NOTE | 2019-08-27 22:13 | XRAY Report ---
Reason: chest pain Procedure Date: 08/27/2019 Accession Number: [id number] / [id number] Procedure: XR - Chest 1 View X-Ray CPT Code: 09960 Final Report FULL RESULT: EXAM: CHEST RADIOGRAPHY EXAM DATE: 08/27/2019 09:59 PM. CLINICAL HISTORY: Chest pain. COMPARISON: CHEST 1 VIEW 04/15/2019 5:06 PM CHEST 1 VIEW 12/28/2018 5:54 PM. TECHNIQUE: 1 view. FINDINGS: Lungs/Pleura: No focal opacities evident. No pleural effusion. No pneumothorax. Mediastinum: Stable cardiomediastinal contours. No mediastinal widening. Other: None. IMPRESSION: Stable CXR. No evidence of acute cardiopulmonary process. RADIA
[2019-08-27 22:51] VITALS: BP 104/71
[2019-08-27] MEDS ORDERED: HYDROcod/ACETAM 5/325 MG TABLET PO STA (22:55)
== END 2019-08-27 23:07 | disposition home or self-care (01) ==
LOC: ED 20:28
DX: K20.9 Esophagitis, unspecified (principal); R07.2 Precordial pain
CPT/HCPCS: 36415; 71045; 80053; 83690; 84484; 85025; 93005; 99284; A9270

== ENCOUNTER 2020-12-23 15:36 | Outpatient (CLI) | payer OTHER | END 2020-12-23 15:37 | disposition EMS.NT | LOC: EMS 15:36 | PROVIDERS: ATTEND Emergency Medicine | DX: Z04.1 Encounter for examination and observation following transport accident (principal) ==

== ENCOUNTER 2020-12-23 17:01 | Emergency (ER) | payer OTHER ==
--- OUTSIDE RECORDS SUMMARY | 2020-12-23 17:05 | EXTERNAL MEDICAL SUMMARY RPT | Continuity of Care Document ---
:1980 Demographics Phone Unavailable Preferred Language Tunisian Marital Status Unknown Yazidism Affiliation Unknown Race Unknown Ethnic Group Unknown Author Organization [facility] Address [address] [place] [address] Phone Social History date description facility [phone]
[2020-12-23 17:20] VITALS: BP 112/85
[2020-12-23] MEDS ORDERED: HYDROcod/ACETAM 5/325 MG TABLET PO STA (17:24)
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
--- OUTSIDE RECORDS SUMMARY | 2020-12-23 17:55 | EXTERNAL MEDICAL SUMMARY RPT | Continuity of Care Document ---
:1980 Demographics Phone Unavailable Preferred Language Iraqi Marital Status Unknown Shinto Affiliation Unknown Race Unknown Ethnic Group Unknown Author Organization [facility] Address [address] [id number] Phone Social History date description facility [phone]
== END 2020-12-23 19:16 | disposition home or self-care (01) ==
LOC: ED 17:01
DX: M54.2 Cervicalgia (principal); R51.9 Headache, unspecified; M25.511 Pain in right shoulder; M25.512 Pain in left shoulder; V43.52XA Car driver injured in collision with other type car in traffic accident, initial encounter; Y92.410 Unspecified street and highway as the place of occurrence of the external cause
CPT/HCPCS: 99282; 99284; A9270

== ENCOUNTER 2022-07-14 15:17 | Emergency (ER) | payer OTHER ==
--- OUTSIDE RECORDS SUMMARY | 2022-07-14 15:28 | EXTERNAL MEDICAL SUMMARY RPT | Continuity of Care Document ---
:1980 Author Organization [facility] Address [address] [place] [address] Phone Allergies and Intolerances date description facility type (no date) [facility] (unknown) Encounters No information. Functional Status No information. Immunizations No information. Medications No information. Problems No information. Procedures No information. Results/Labs test date author facility value unit interpret ation Result panel 1 (unknown) (no (unknown) (unknown) (no value) (units (unk nown) date) unknown) (unknown) (no (unknown) (unknown) [id number] (units (unkno wn) date) unknown) (unknown) (no (unknown) (unknown) 06/29/22 (units (unkno wn) date) unknown) (unknown) (no (unknown) (unknown) [address] [place] [address] (units (unknown) date) unknown) (unknown) (no (unknown) (unknown) Accession Number: (units (unknown) date) [id number] unknown) (unknown) (no (unknown) (unknown) Age/Sex: 41 / F (units (unknown) date) Date of Service: unknown) (unknown) (no (unknown) (unknown) [place], [place] (units ( unknown) date) [id number] unknown) (unknown) (no (unknown) (unknown) Approved by: (units (u nknown) date) Bayron Carrington M.D. unknown) on 06/29/2022 at 11:13 (unknown) (no (unknown) (unknown) Bones and chest (units (unknown) date) wall: No unknown) suspicious bony lesions. Overlying soft tissues (unknown) (no (unknown) (unknown) COMPARISON: None. (units (unknown) date) unknown) (unknown) (no (unknown) (unknown) : 1980 (units (unknown) date) Acct:[id number] unknown) (unknown) (no (unknown) (unknown) Dictated by: (units (u nknown) date) Bayron Carrington M.D. unknown) on 06/29/2022 at 11:12 (unknown) (no (unknown) (unknown) FINDINGS: (units (unkn own) date) unknown) (unknown) (no (unknown) (unknown) IMPRESSION: (units (un known) date) unknown) (unknown) (no (unknown) (unknown) INDICATIONS: (units (u nknown) date) chest pain unknown) (unknown) (no (unknown) (unknown) [facility] (units (unknown) date) unknown) (unknown) (no (unknown) (unknown) Loc: ED (units (unkno wn) date) unknown) (unknown) (no (unknown) (unknown) Lungs and pleura: (units (unknown) date) Lungs are clear. unknown) No pleural effusions or pneumothorax. (unknown) (no (unknown) (unknown) Mediastinum: (units (u nknown) date) Mediastinal unknown) contours appear normal. Heart size is normal. (unknown) (no (unknown) (unknown) No acute (units (unkno wn) date) cardiopulmonary unknown) abnormality. (unknown) (no (unknown) (unknown) Ordering (units (unkno wn) date) Provider: unknown) Jayden Newman D.O. (unknown) (no (unknown) (unknown) PROCEDURE: XR (units ( unknown) date) CHEST 1V unknown) (unknown) (no (unknown) (unknown) Patient: (units (unkno wn) date) Burton Diamond N unknown) MR#: [id number] (unknown) (no (unknown) (unknown) Procedure: XR (units ( unknown) date) chest 1V unknown) (unknown) (no (unknown) (unknown) Signed (units (unkno wn) date) unknown) (unknown) (no (unknown) (unknown) Surgical changes (units (unknown) date) and devices: None. unknown) (unknown) (no (unknown) (unknown) TECHNIQUE: One (units (unknown) date) view of the chest unknown) was acquired. (unknown) (no (unknown) (unknown) XRay Report (units (un known) date) unknown) (unknown) (no (unknown) (unknown) appear (units (unkno wn) date) unknown) (unknown) (no (unknown) (unknown) unremarkable. (units ( unknown) date) unknown) Result panel 2 (unknown) (no date) (unknown) (unknown) 0 /ul (unkn own) (unknown) (no date) (unknown) (unknown) 0.3 % (unkn own) (unknown) (no date) (unknown) (unknown) 11.0 x10 3/ul (unkn own) (unknown) (no date) (unknown) (unknown) 13.4 % (unkn own) (unknown) (no date) (unknown) (unknown) 15.2 g/dl (unkn own) (unknown) (no date) (unknown) (unknown) 17.6 % (unkn own) (unknown) (no date) (unknown) (unknown) 1900 /ul (unkn own) (unknown) (no date) (unknown) (unknown) 2.4 % (unkn own) (unknown) (no date) (unknown) (unknown) 299 x10 3/ul (unkn own) (unknown) (no date) (unknown) (unknown) 3.8 % (unkn own) (unknown) (no date) (unknown) (unknown) 30.3 pg (unkn own) (unknown) (no date) (unknown) (unknown) 300 /ul (unkn own) (unknown) (no date) (unknown) (unknown) 34.1 % (unkn own) (unknown) (no date) (unknown) (unknown) 400 /ul (unkn own) (unknown) (no date) (unknown) (unknown) 44.5 % (unkn own) (unknown) (no date) (unknown) (unknown) 5.01 x10 6/ul (unkn own) (unknown) (no date) (unknown) (unknown) 75.9 % (unkn own) (unknown) (no date) (unknown) (unknown) 8300 /ul (unkn own) (unknown) (no date) (unknown) (unknown) 88.8 fl (unkn own) Result panel 3 (unknown) (no date) (unknown) (unknown) > 60 ml/min (unkn own) (unknown) (no date) (unknown) (unknown) > 60 ml/min (unkn own) (unknown) (no date) (unknown) (unknown) < 0.012 ng/ml (unkn own) (unknown) (no date) (unknown) (unknown) < 0.012 ng/ml (unkn own) (unknown) (no date) (unknown) (unknown) 0.8 mg/dl (unkn own) (unknown) (no date) (unknown) (unknown) 0.90 mg/dl (unkn own) (unknown) (no date) (unknown) (unknown) 1.0 (units (unkn own) unknown) (unknown) (no date) (unknown) (unknown) 10.0 (units (unkn own) unknown) (unknown) (no date) (unknown) (unknown) 10.2 mg/dl (unkn own) (unknown) (no date) (unknown) (unknown) 102 mg/dl (unkn own) (unknown) (no date) (unknown) (unknown) 102 mg/dl (unkn own) (unknown) (no date) (unknown) (unknown) 142 u/l (unkn own) (unknown) (no date) (unknown) (unknown) 143 mmol/l (unkn own) (unknown) (no date) (unknown) (unknown) 2.1 mg/dl (unkn own) (unknown) (no date) (unknown) (unknown) 29 mmol/l (unkn own) (unknown) (no date) (unknown) (unknown) 4.3 mmol/l (unkn own) (unknown) (no date) (unknown) (unknown) 4.7 g/dl (unkn own) (unknown) (no date) (unknown) (unknown) 4.9 g/dl (unkn own) (unknown) (no date) (unknown) (unknown) 47 u/l (unkn own) (unknown) (no date) (unknown) (unknown) 53 iu/l (unkn own) (unknown) (no date) (unknown) (unknown) 64 u/l (unkn own) (unknown) (no date) (unknown) (unknown) 81 iu/l (unkn own) (unknown) (no date) (unknown) (unknown) 9 mg/dl (unkn own) (unknown) (no date) (unknown) (unknown) 9.6 g/dl (unkn own) (unknown) (no date) (unknown) (unknown) 99 mmol/l (unkn own) Result panel 4 (unknown) (no date) (unknown) (unknown) (no value) (units (un known) unknown) (unknown) (no date) (unknown) (unknown) [id number] (units (unkn own) unknown) (unknown) (no date) (unknown) (unknown) 06/29/22 (units (unkn own) unknown) (unknown) (no date) (unknown) (unknown) [address]units ([address] n[address]) [address] unknown) (unknown) (no date) (unknown) (unknown) Accession (units (unk nown) Number: unknown) [id number] (unknown) (no date) (unknown) (unknown) Age/Sex: 41 / (units (unknown) F Date of unknown) Service: (unknown) (no date) (unknown) (unknown) [place], [place] (units (unknown) [address] unknown) (unknown) (no date) (unknown) (unknown) Approved by: (units ( unknown) Bayron Carrington, unknown) MSharon on 06/29/2022 at 16:28 (unknown) (no date) (unknown) (unknown) COMPARISON: (units (u nknown) None. unknown) (unknown) (no date) (unknown) (unknown) Comment: (units (unkn own) Findings were unknown) discussed with Jayden Newman at 4:27 p.m. (unknown) (no date) (unknown) (unknown) : (units (unkn own) 1980 unknown) Acct:[id number] (unknown) (no date) (unknown) (unknown) Dictated by: (units ( unknown) Bayron Call, unknown) MSharon on 06/29/2022 at 16:23 (unknown) (no date) (unknown) (unknown) FINDINGS: (units (unk nown) There is unknown) occlusive thrombus in the brachial vein x2. There is (unknown) (no date) (unknown) (unknown) IMPRESSION: (units (u nknown) unknown) (unknown) (no date) (unknown) (unknown) INDICATIONS: (units ( unknown) PAIN/SWELLING. unknown) RECENT SURGERY (unknown) (no date) (unknown) ([facility] (unknown) (no date) (unknown) (unknown) Loc: ED (units (unkn own) unknown) (unknown) (no date) (unknown) (unknown) Ordering (units (unkn own) Provider: unknown) Jayden Newman D.O. (unknown) (no date) (unknown) (unknown) PROCEDURE: US (units (unknown) PERIPH VENOUS unknown) UP EXTREM LT (unknown) (no date) (unknown) (unknown) Patient: (units (unkn own) Burton Diamond unknown) MR#: [id number] (unknown) (no date) (unknown) (unknown) Positive exam. (units (unknown) DVT in the unknown) brachial and axillary veins. (unknown) (no date) (unknown) (unknown) Procedure: US (units (unknown) periph venous unknown) up extrem lt (unknown) (no date) (unknown) (unknown) Real-time (units (unk nown) imaging, as unknown) well as color and pulse Doppler interrogation, was (unknown) (no date) (unknown) (unknown) Right IJ, (units (unk nown) subclavian unknown) vein, cephalic vein, basilic vein are patent. (unknown) (no date) (unknown) (unknown) Signed (units (unkn own) unknown) (unknown) (no date) (unknown) (unknown) TECHNIQUE: (units (un known) unknown) (unknown) (no date) (unknown) (unknown) Ultrasound (units (un known) Report unknown) (unknown) (no date) (unknown) (unknown) fossa. (units (unkn own) unknown) (unknown) (no date) (unknown) (unknown) left upper (units (un known) extremity deep unknown) veins from the inferior neck to the antecubital (unknown) (no date) (unknown) (unknown) occlusive (units (unk nown) thrombus in the unknown) axillary vein. (unknown) (no date) (unknown) (unknown) partially (units (unk nown) unknown) (unknown) (no date) (unknown) (unknown) performed of (units ( unknown) the unknown) Result panel 5 (unknown) (no (unknown) (unknown) (no value) (units (unk nown) date) unknown) (unknown) (no (unknown) (unknown) [id number] (units (unkno wn) date) unknown) (unknown) (no (unknown) (unknown) 06/29/22 (units (unkno wn) date) 06/29/22 unknown) Range/Units (unknown) (no (unknown) (unknown) 06/29/22 10:53 (units (unknown) date) unknown) (unknown) (no (unknown) (unknown) 06/29/22 11:00 (units (unknown) date) unknown) (unknown) (no (unknown) (unknown) 06/29/22 11:24 (units (unknown) date) unknown) (unknown) (no (unknown) (unknown) 06/29/22 11:56 (units (unknown) date) unknown) (unknown) (no (unknown) (unknown) 06/29/22 11:57 (units (unknown) date) unknown) (unknown) (no (unknown) (unknown) 06/29/22 (units (unkno wn) date) unknown) (unknown) (no (unknown) (unknown) 10:50 (units (unkno wn) date) unknown) (unknown) (no (unknown) (unknown) 11:00 11:00 (units (un known) date) unknown) (unknown) (no (unknown) (unknown) 40 mg PO DAILY (units (unknown) date) unknown) (unknown) (no (unknown) (unknown) ALT 81 H (<35) (units (unknown) date) IU/L unknown) (unknown) (no (unknown) (unknown) AST 53 H (14-36) (units (unknown) date) IU/L unknown) (unknown) (no (unknown) (unknown) Age/Sex: 41 / F (units (unknown) date) unknown) (unknown) (no (unknown) (unknown) Albumin 4.9 (units (un known) date) (3.5-5.0) g/dL unknown) (unknown) (no (unknown) (unknown) Albumin/Globulin (units (unknown) date) Ratio 1.0 unknown) (1.0-2.8) (unknown) (no (unknown) (unknown) Alkaline (units (unkno wn) date) Phosphatase 64 unknown) (38-126) U/L (unknown) (no (unknown) (unknown) Allergies (units (unkn own) date) unknown) (unknown) (no (unknown) (unknown) Allergy/AdvReac (units (unknown) date) Type Severity unknown) Reaction Status Date / Time (unknown) (no (unknown) (unknown) BUN 9 (7-17) (units (u nknown) date) mg/dL unknown) (unknown) (no (unknown) (unknown) BUN/Creatinine (units (unknown) date) Ratio 10.0 (6-22) unknown) (unknown) (no (unknown) (unknown) Baso # (Auto) 0 (units (unknown) date) (0-100) /uL unknown) (unknown) (no (unknown) (unknown) Baso % (Auto) (units ( unknown) date) 0.3 (0-2) % unknown) (unknown) (no (unknown) (unknown) Blood Pressure (units (unknown) date) 134/94 H 06/29/22 unknown) 10:50 (unknown) (no (unknown) (unknown) Blood Pressure (units (unknown) date) 134/94 H unknown) (unknown) (no (unknown) (unknown) Calcium 10.2 (units (u nknown) date) (8.4-10.2) mg/dL unknown) (unknown) (no (unknown) (unknown) Carbon Dioxide (units (unknown) date) 29 (22-32) mmol/L unknown) (unknown) (no (unknown) (unknown) Chief Complaint: (units (unknown) date) Dizziness unknown) (unknown) (no (unknown) (unknown) Chloride 99 (units (un known) date) (98-107) mmol/L unknown) (unknown) (no (unknown) (unknown) Complete Blood (units (unknown) date) Count AUTO DIFF unknown) Stat (unknown) (no (unknown) (unknown) Comprehensive (units ( unknown) date) Metabolic Panel unknown) Stat (unknown) (no (unknown) (unknown) Course (units (unkno wn) date) unknown) (unknown) (no (unknown) (unknown) Creatinine 0.90 (units (unknown) date) (0.52-1.04) mg/dL unknown) (unknown) (no (unknown) (unknown) D Dimer Stat (units (u nknown) date) unknown) (unknown) (no (unknown) (unknown) : 1980 (units (unknown) date) Acct:[id number] unknown) (unknown) (no (unknown) (unknown) Date of Service: (units (unknown) date) 06/29/22 unknown) (unknown) (no (unknown) (unknown) Departure (units (unkn own) date) unknown) (unknown) (no (unknown) (unknown) Discharge Plan (units (unknown) date) unknown) (unknown) (no (unknown) (unknown) ED Orders (units (unkn own) date) unknown) (unknown) (no (unknown) (unknown) EKG-12 Lead Stat (units (unknown) date) unknown) (unknown) (no (unknown) (unknown) ER Physician: (units ( unknown) date) Jayden Newman unknown) D.O. (unknown) (no (unknown) (unknown) Emergency Report (units (unknown) date) unknown) (unknown) (no (unknown) (unknown) Eos # (Auto) 300 (units (unknown) date) (0-450) /uL unknown) (unknown) (no (unknown) (unknown) Eos % (Auto) 2.4 (units (unknown) date) (2-4) % unknown) (unknown) (no (unknown) (unknown) Estimated GFR > (units (unknown) date) 60 (>60) mL/min unknown) (unknown) (no (unknown) (unknown) Exam (units (unkno wn) date) unknown) (unknown) (no (unknown) (unknown) General (units (unkno wn) date) unknown) (unknown) (no (unknown) (unknown) Globulin 4.7 H (units (unknown) date) (1.7-4.1) g/dL unknown) (unknown) (no (unknown) (unknown) Glucose 102 H (units ( unknown) date) (70-100) mg/dL unknown) (unknown) (no (unknown) (unknown) HPI - Dizziness (units (unknown) date) unknown) (unknown) (no (unknown) (unknown) Hct 44.5 (36-46) (units (unknown) date) % unknown) (unknown) (no (unknown) (unknown) Hgb 15.2 (units (unkno wn) date) (12.0-16.0) g/dL unknown) (unknown) (no (unknown) (unknown) Home Medications (units (unknown) date) unknown) (unknown) (no (unknown) (unknown) Initial Vital (units ( unknown) date) Signs unknown) (unknown) (no (unknown) (unknown) Initial Vital (units ( unknown) date) Signs: unknown) (unknown) (no (unknown) (unknown) [facility] (units (unknown) date) [address] unknown) [place] [address] (unknown) (no (unknown) (unknown) Lab Data (units (unkno wn) date) unknown) (unknown) (no (unknown) (unknown) Lab Results (units (un known) date) unknown) (unknown) (no (unknown) (unknown) Labs: (units (unkno wn) date) unknown) (unknown) (no (unknown) (unknown) Lipase 47 (units (unkn own) date) (23-300) U/L unknown) (unknown) (no (unknown) (unknown) Lipase Stat (units (un known) date) unknown) (unknown) (no (unknown) (unknown) Lymph # (Auto) (units (unknown) date) 1900 (2361-2443) unknown) /uL (unknown) (no (unknown) (unknown) Lymph % (Auto) (units (unknown) date) 17.6 L (25-40) % unknown) (unknown) (no (unknown) (unknown) MCH 30.3 (26-34) (units (unknown) date) PG unknown) (unknown) (no (unknown) (unknown) MCHC 34.1 (units (unkn own) date) (30-36) % unknown) (unknown) (no (unknown) (unknown) MCV 88.8 (units (unkno wn) date) (80-100) fL unknown) (unknown) (no (unknown) (unknown) MDM - Dizziness (units (unknown) date) unknown) (unknown) (no (unknown) (unknown) Magnesium 2.1 (units ( unknown) date) (1.6-2.3) mg/dL unknown) (unknown) (no (unknown) (unknown) Magnesium Stat (units (unknown) date) unknown) (unknown) (no (unknown) (unknown) Medical History (units (unknown) date) (Updated 12/16/21 unknown) @ 16:59 by Chrystal Puga MD) (unknown) (no (unknown) (unknown) Medication (units (unk nown) date) Instructions unknown) Recorded Confirmed (unknown) (no (unknown) (unknown) Mode of arrival: (units (unknown) date) Ambulatory unknown) (unknown) (no (unknown) (unknown) [place] # (Auto) (units ( unknown) date) 400 (0-900) /uL unknown) (unknown) (no (unknown) (unknown) [place] % (Auto) (units ( unknown) date) 3.8 (3-14) % unknown) (unknown) (no (unknown) (unknown) (normal (units (u nknown) date) spontaneous unknown) vaginal delivery) (unknown) (no (unknown) (unknown) Neut # (Auto) (units ( unknown) date) 8300 H unknown) (9379-2010) /uL (unknown) (no (unknown) (unknown) Neut % (Auto) (units ( unknown) date) 75.9 H (50-75) % unknown) (unknown) (no (unknown) (unknown) No Action (units (unkn own) date) unknown) (unknown) (no (unknown) (unknown) Ordered: (units (unkno wn) date) unknown) (unknown) (no (unknown) (unknown) Orders (units (unkno wn) date) unknown) (unknown) (no (unknown) (unknown) Oxygen Delivery (units (unknown) date) Method 06/29/22 unknown) 10:50 (unknown) (no (unknown) (unknown) Oxygen Delivery (units (unknown) date) Method Room Air unknown) (unknown) (no (unknown) (unknown) Patient History (units (unknown) date) unknown) (unknown) (no (unknown) (unknown) Patient: (units (unkno wn) date) [place] N unknown) MR#: [id number] (unknown) (no (unknown) (unknown) Plt Count 299 (units ( unknown) date) (150-400) X103/uL unknown) (unknown) (no (unknown) (unknown) Potassium 4.3 (units ( unknown) date) (3.4-5.1) mmol/L unknown) (unknown) (no (unknown) (unknown) Prescriptions: (units (unknown) date) unknown) (unknown) (no (unknown) (unknown) Previous (units (unkno wn) date) section unknown) (unknown) (no (unknown) (unknown) Provider,Eduin (units (unknown) date) KISHA [Primary Care unknown) Provider] (unknown) (no (unknown) (unknown) Pulse Oximetry (units (unknown) date) 99 06/29/22 10:50 unknown) (unknown) (no (unknown) (unknown) Pulse Oximetry (units (unknown) date) 99 unknown) (unknown) (no (unknown) (unknown) Pulse Rate 85 (units ( unknown) date) 06/29/22 10:50 unknown) (unknown) (no (unknown) (unknown) Pulse Rate 85 (units ( unknown) date) unknown) (unknown) (no (unknown) (unknown) RBC 5.01 (units (unkno wn) date) (4.0-5.2) X106/uL unknown) (unknown) (no (unknown) (unknown) RDW 13.4 (units (unkno wn) date) (11.6-14.8) % unknown) (unknown) (no (unknown) (unknown) Referrals: (units (unk nown) date) unknown) (unknown) (no (unknown) (unknown) Related Data (units (u nknown) date) unknown) (unknown) (no (unknown) (unknown) Respiratory Rate (units (unknown) date) 15 06/29/22 10:50 unknown) (unknown) (no (unknown) (unknown) Respiratory Rate (units (unknown) date) 15 unknown) (unknown) (no (unknown) (unknown) Result diagrams: (units (unknown) date) unknown) (unknown) (no (unknown) (unknown) S/P laparoscopic (units (unknown) date) hysterectomy unknown) (unknown) (no (unknown) (unknown) Signed By: (units (unk nown) date) unknown) (unknown) (no (unknown) (unknown) Smoking Status: (units (unknown) date) Never smoker unknown) (unknown) (no (unknown) (unknown) Social History (units (unknown) date) (System 10/19/19 unknown) @ 15:41 by Dotty Tian) (unknown) (no (unknown) (unknown) Sodium 143 (units (unk nown) date) (137-145) mmol/L unknown) (unknown) (no (unknown) (unknown) Source: patient (units (unknown) date) unknown) (unknown) (no (unknown) (unknown) Stated (units (unkno wn) date) Complaint: unknown) surgery friday, lt arm numb, ligheaded, BP up (unknown) (no (unknown) (unknown) Substance Use (units ( unknown) date) Type: does not unknown) use (unknown) (no (unknown) (unknown) Surgical History (units (unknown) date) (Updated 12/16/21 unknown) @ 16:56 by Chrystal Puga MD) (unknown) (no (unknown) (unknown) Temperature 97.0 (units (unknown) date) F L 06/29/22 unknown) 10:50 (unknown) (no (unknown) (unknown) Temperature 97.0 (units (unknown) date) F L unknown) (unknown) (no (unknown) (unknown) Time Seen by (units (u nknown) date) Provider: unknown) 06/29/22 11:51 (unknown) (no (unknown) (unknown) Total Bilirubin (units (unknown) date) 0.8 (0.2-1.3) unknown) mg/dL (unknown) (no (unknown) (unknown) Total Creatine (units (unknown) date) Kinase 142 H unknown) (30-135) U/L (unknown) (no (unknown) (unknown) Total Protein (units ( unknown) date) 9.6 H (6.3-8.2) unknown) g/dL (unknown) (no (unknown) (unknown) Troponin + CK (units ( unknown) date) Cardiac Panel unknown) Stat (unknown) (no (unknown) (unknown) Troponin I < (units (u nknown) date) 0.012 unknown) (0.01-0.034) ng/mL (unknown) (no (unknown) (unknown) US periph venous (units (unknown) date) up extrem lt Stat unknown) (unknown) (no (unknown) (unknown) Vital Signs - 8 (units (unknown) date) hr unknown) (unknown) (no (unknown) (unknown) Vital Signs (units (un known) date) unknown) (unknown) (no (unknown) (unknown) Vital signs: (units (u nknown) date) unknown) (unknown) (no (unknown) (unknown) WBC 11.0 (units (unkno wn) date) (4.5-11.0) unknown) X103/uL (unknown) (no (unknown) (unknown) XR chest 1V Stat (units (unknown) date) unknown) (unknown) (no (unknown) (unknown) [Embedded Image (units (unknown) date) Not Available] unknown) (unknown) (no (unknown) (unknown) alcohol intake (units (unknown) date) frequency: unknown) holidays/special occasions only (unknown) (no (unknown) (unknown) ibuprofen (units (unkn own) date) Allergy Verified unknown) 06/29/22 10:50 (unknown) (no (unknown) (unknown) pantoprazole 40 (units (unknown) date) mg tablet,delayed unknown) 40 mg PO DAILY 12/10/21 12/10/21 (unknown) (no (unknown) (unknown) pantoprazole 40 (units (unknown) date) mg tablet,delayed unknown) release (DR/EC) (unknown) (no (unknown) (unknown) release (units (unkno wn) date) unknown) Result panel 6 (unknown) (no date) (unknown) (unknown) > 60 ml/min (unkn own) (unknown) (no date) (unknown) (unknown) > 60 ml/min (unkn own) (unknown) (no date) (unknown) (unknown) < 0.012 ng/ml (unkn own) (unknown) (no date) (unknown) (unknown) < 0.012 ng/ml (unkn own) (unknown) (no date) (unknown) (unknown) < 0.22 ng/ml (unkn own) (unknown) (no date) (unknown) (unknown) 0.2 % (unkn own) (unknown) (no date) (unknown) (unknown) 0.8 mg/dl (unkn own) (unknown) (no date) (unknown) (unknown) 0.90 mg/dl (unkn own) (unknown) (no date) (unknown) (unknown) 1.0 (units (unkn own) unknown) (unknown) (no date) (unknown) (unknown) 10.0 (units (unkn own) unknown) (unknown) (no date) (unknown) (unknown) 10.2 mg/dl (unkn own) (unknown) (no date) (unknown) (unknown) 102 mg/dl (unkn own) (unknown) (no date) (unknown) (unknown) 102 mg/dl (unkn own) (unknown) (no date) (unknown) (unknown) 142 u/l (unkn own) (unknown) (no date) (unknown) (unknown) 143 mmol/l (unkn own) (unknown) (no date) (unknown) (unknown) 2.1 mg/dl (unkn own) (unknown) (no date) (unknown) (unknown) 29 mmol/l (unkn own) (unknown) (no date) (unknown) (unknown) 4.3 mmol/l (unkn own) (unknown) (no date) (unknown) (unknown) 4.7 g/dl (unkn own) (unknown) (no date) (unknown) (unknown) 4.9 g/dl (unkn own) (unknown) (no date) (unknown) (unknown) 47 u/l (unkn own) (unknown) (no date) (unknown) (unknown) 53 iu/l (unkn own) (unknown) (no date) (unknown) (unknown) 64 u/l (unkn own) (unknown) (no date) (unknown) (unknown) 81 iu/l (unkn own) (unknown) (no date) (unknown) (unknown) 9 mg/dl (unkn own) (unknown) (no date) (unknown) (unknown) 9.6 g/dl (unkn own) (unknown) (no date) (unknown) (unknown) 99 mmol/l (unkn own) Result panel 7 (unknown) (no date) (unknown) (unknown) 1251 ng/ml (unkn own) (unknown) (no date) (unknown) (unknown) 1251 ng/ml (unkn own) Result panel 8 (unknown) (no (unknown) (unknown) (no value) (units (unk nown) date) unknown) (unknown) (no (unknown) (unknown) (). (units (unkno wn) date) unknown) (unknown) (no (unknown) (unknown) [id number] (units (unkno wn) date) unknown) (unknown) (no (unknown) (unknown) 1. No pulmonary (units (unknown) date) embolism. unknown) (unknown) (no (unknown) (unknown) 06/29/22 (units (unkno wn) date) unknown) (unknown) (no (unknown) (unknown) [address] [place] [address] (units (unknown) date) unknown) (unknown) (no (unknown) (unknown) 2. No acute (units (un known) date) airspace opacity. unknown) (unknown) (no (unknown) (unknown) 3. Small focus of (units (unknown) date) pneumoperitoneum. unknown) This is presumably postsurgical in nature. (unknown) (no (unknown) (unknown) Abdomen: Post (units ( unknown) date) cholecystectomy. unknown) Small focus of gas under the right (unknown) (no (unknown) (unknown) Accession Number: (units (unknown) date) [id number] unknown) (unknown) (no (unknown) (unknown) After the (units (unkn own) date) administration of unknown) intravenous contrast, 2 mm thick sections acquired (unknown) (no (unknown) (unknown) Age/Sex: 41 / F (units (unknown) date) Date of Service: unknown) (unknown) (no (unknown) (unknown) [place], [place] (units ( unknown) date) [id number] unknown) (unknown) (no (unknown) (unknown) Approved by: (units (u nknown) date) Bayron Carrington M.D. unknown) on 06/29/2022 at 13:44 (unknown) (no (unknown) (unknown) Bones and chest (units (unknown) date) wall: No unknown) suspicious bony lesions. Ribs and thoracic spine (unknown) (no (unknown) (unknown) COMPARISON: None. (units (unknown) date) unknown) (unknown) (no (unknown) (unknown) CT Scan Report (units (unknown) date) unknown) (unknown) (no (unknown) (unknown) CT abdomen pelvis (units (unknown) date) with IV contrast. unknown) (unknown) (no (unknown) (unknown) Comment: Findings (units (unknown) date) were discussed unknown) with Jayden Newman at 1:42 p.m. Reports recent (unknown) (no (unknown) (unknown) : 1980 (units (unknown) date) Acct:[id number] unknown) (unknown) (no (unknown) (unknown) Dictated by: (units (u nknown) date) Bayron Carrington M.D. unknown) on 06/29/2022 at 13:35 (unknown) (no (unknown) (unknown) Esophagus is (units (u nknown) date) unknown) (unknown) (no (unknown) (unknown) FINDINGS: (units (unkn own) date) unknown) (unknown) (no (unknown) (unknown) For radiation (units ( unknown) date) dose reduction, unknown) the following was used: automated exposure (unknown) (no (unknown) (unknown) IMPRESSION: (units (un known) date) unknown) (unknown) (no (unknown) (unknown) INDICATIONS: SOB, (units (unknown) date) critical dimer, unknown) chest pain, recent surgery, PE? (unknown) (no (unknown) (unknown) Image quality: (units (unknown) date) Excellent. unknown) (unknown) (no (unknown) (unknown) [facility] (units (unknown) date) unknown) (unknown) (no (unknown) (unknown) Loc: ED (units (unkno wn) date) unknown) (unknown) (no (unknown) (unknown) Lungs and pleura: (units (unknown) date) Lungs are clear. unknown) Left calcified granuloma. No pleural (unknown) (no (unknown) (unknown) Mediastinum: (units (u nknown) date) Heart size is unknown) normal, without pericardial effusion. No (unknown) (no (unknown) (unknown) Ordering (units (unkno wn) date) Provider: unknown) Jayden Newman D.O. (unknown) (no (unknown) (unknown) PROCEDURE: CT (units ( unknown) date) ANGIO CHEST PE unknown) PROTOCOL (unknown) (no (unknown) (unknown) Patient: (units (unkno wn) date) Burton Diamond N unknown) MR#: [id number] (unknown) (no (unknown) (unknown) Procedure: CT (units ( unknown) date) angio chest PE unknown) protocol (unknown) (no (unknown) (unknown) Pulmonary (units (unkn own) date) arteries: unknown) Pulmonary arteries are normal in size, and demonstrate no (unknown) (no (unknown) (unknown) Recommend (units (unkn own) date) clinical unknown) correlation. If clinically indicated consider further (unknown) (no (unknown) (unknown) Signed (units (unkno wn) date) unknown) (unknown) (no (unknown) (unknown) TECHNIQUE: (units (unk nown) date) unknown) (unknown) (no (unknown) (unknown) adenopathy. (units (un known) date) unknown) (unknown) (no (unknown) (unknown) adjustment of mA (units (unknown) date) and/or kV unknown) according to patient size. (unknown) (no (unknown) (unknown) appear intact (units ( unknown) date) unknown) (unknown) (no (unknown) (unknown) control, (units (unkno wn) date) unknown) (unknown) (no (unknown) (unknown) effusions or (units (u nknown) date) unknown) (unknown) (no (unknown) (unknown) evaluation with (units (unknown) date) unknown) (unknown) (no (unknown) (unknown) from the (units (unkno wn) date) unknown) (unknown) (no (unknown) (unknown) hemidiaphragm, (units (unknown) date) unknown) (unknown) (no (unknown) (unknown) hilar adenopathy. (units (unknown) date) Thoracic aorta is unknown) normal in caliber and enhancement. (unknown) (no (unknown) (unknown) intensity (units (unkn own) date) unknown) (unknown) (no (unknown) (unknown) intraluminal (units (u nknown) date) filling defects to unknown) suggest central pulmonary embolism. (unknown) (no (unknown) (unknown) mediastinal or (units (unknown) date) unknown) (unknown) (no (unknown) (unknown) normal in (units (unkn own) date) caliber, without unknown) hiatal hernia. (unknown) (no (unknown) (unknown) on last Friday. (units (unknown) date) unknown) (unknown) (no (unknown) (unknown) pneumothorax. (units ( unknown) date) Central and unknown) peripheral airways are patent. (unknown) (no (unknown) (unknown) projection (MIP) (units (unknown) date) coronal and unknown) sagittal reformats were then acquired through the (unknown) (no (unknown) (unknown) pulmonary apices (units (unknown) date) to the posterior unknown) costophrenic angles. 3-dimensional maximum (unknown) (no (unknown) (unknown) surgery (units (unkno wn) date) unknown) (unknown) (no (unknown) (unknown) thorax. (units (unkno wn) date) unknown) (unknown) (no (unknown) (unknown) throughout. (units (un known) date) Thyroid gland is unknown) unremarkable. No axillary or supraclavicular Result panel 9 (unknown) (no (unknown) (unknown) (no value) (units (unk nown) date) unknown) (unknown) (no (unknown) (unknown) ().? (units (unkno wn) date) unknown) (unknown) (no (unknown) (unknown) [id number] (units (unkno wn) date) unknown) (unknown) (no (unknown) (unknown) 1. No pulmonary (units (unknown) date) embolism. unknown) (unknown) (no (unknown) (unknown) 06/29/22 06/29/22 (units (unknown) date) 06/29/22 unknown) Range/Units (unknown) (no (unknown) (unknown) 06/29/22 10:53 (units (unknown) date) unknown) (unknown) (no (unknown) (unknown) 06/29/22 11:00 (units (unknown) date) unknown) (unknown) (no (unknown) (unknown) 06/29/22 11:24 (units (unknown) date) unknown) (unknown) (no (unknown) (unknown) 06/29/22 11:56 (units (unknown) date) unknown) (unknown) (no (unknown) (unknown) 06/29/22 13:27 (units (unknown) date) unknown) (unknown) (no (unknown) (unknown) 06/29/22 (units (unkno wn) date) unknown) (unknown) (no (unknown) (unknown) 10:50 06/29/22 (units (unknown) date) unknown) (unknown) (no (unknown) (unknown) 11:00 11:00 11:00 (units (unknown) date) unknown) (unknown) (no (unknown) (unknown) 12 point review (units (unknown) date) of systems is unknown) negative except for those stated above (unknown) (no (unknown) (unknown) [address] [place] [address] (units (unknown) date) unknown) (unknown) (no (unknown) (unknown) 12:38 06/29/22 (units (unknown) date) unknown) (unknown) (no (unknown) (unknown) 12:38 (units (unkno wn) date) unknown) (unknown) (no (unknown) (unknown) 2. No acute (units (un known) date) airspace opacity. unknown) (unknown) (no (unknown) (unknown) 3. Small focus of (units (unknown) date) pneumoperitoneum.? unknown) This is presumably postsurgical in nature.? (unknown) (no (unknown) (unknown) 40 mg PO DAILY (units (unknown) date) unknown) (unknown) (no (unknown) (unknown) 41-year-old (units (un known) date) female nonsmoker unknown) presents with in the chief complaint of (unknown) (no (unknown) (unknown) ? (units (unkno wn) date) unknown) (unknown) (no (unknown) (unknown) ALT 81 H (<35) (units (unknown) date) IU/L unknown) (unknown) (no (unknown) (unknown) AST 53 H (14-36) (units (unknown) date) IU/L unknown) (unknown) (no (unknown) (unknown) Abdomen:? Post (units (unknown) date) cholecystectomy.? unknown) Small focus of gas under the right (unknown) (no (unknown) (unknown) Accession Number: (units (unknown) date) [id number] ?? unknown) (unknown) (no (unknown) (unknown) Acct:[id number] (units (unknown) date) unknown) (unknown) (no (unknown) (unknown) After the (units (unkn own) date) administration of unknown) intravenous contrast, 2 mm thick sections acquired (unknown) (no (unknown) (unknown) Age/Sex: 41 / F (units (unknown) date) unknown) (unknown) (no (unknown) (unknown) Albumin 4.9 (units (un known) date) (3.5-5.0) g/dL unknown) (unknown) (no (unknown) (unknown) Albumin/Globulin (units (unknown) date) Ratio 1.0 unknown) (1.0-2.8) (unknown) (no (unknown) (unknown) Alkaline (units (unkno wn) date) Phosphatase 64 unknown) (38-126) U/L (unknown) (no (unknown) (unknown) Allergies (units (unkn own) date) unknown) (unknown) (no (unknown) (unknown) Allergy/AdvReac (units (unknown) date) Type Severity unknown) Reaction Status Date / Time (unknown) (no (unknown) (unknown) [place] (units ( unknown) date) [address] unknown) (unknown) (no (unknown) (unknown) Approved by: (units (u nknown) date) Bayron Carrington M.D. unknown) on 06/29/2022 at 13:44 ? (unknown) (no (unknown) (unknown) BACK: Nontender (units (unknown) date) without deformity unknown) or crepitance. No flank tenderness. (unknown) (no (unknown) (unknown) BUN 9 (7-17) (units (u nknown) date) mg/dL unknown) (unknown) (no (unknown) (unknown) BUN/Creatinine (units (unknown) date) Ratio 10.0 (6-22) unknown) (unknown) (no (unknown) (unknown) Baso # (Auto) 0 (units (unknown) date) (0-100) /uL unknown) (unknown) (no (unknown) (unknown) Baso % (Auto) 0.3 (units (unknown) date) (0-2) % unknown) (unknown) (no (unknown) (unknown) Blood Pressure (units (unknown) date) 134/94 H 06/29/22 unknown) 10:50 (unknown) (no (unknown) (unknown) Blood Pressure (units (unknown) date) 134/94 H 131/86 unknown) (unknown) (no (unknown) (unknown) Bones and chest (units (unknown) date) wall:? No unknown) suspicious bony lesions.? Ribs and thoracic spine (unknown) (no (unknown) (unknown) CARDIOVASCULAR: (units (unknown) date) Regular rate and unknown) rhythm without murmurs, gallops, or rubs. No (unknown) (no (unknown) (unknown) CARDIOVASCULAR: (units (unknown) date) See HPI unknown) (unknown) (no (unknown) (unknown) CK-MB (CK-2) < (units (unknown) date) 0.22 (<2.37) ng/mL unknown) (unknown) (no (unknown) (unknown) CK-MB (CK-2) Rel (units (unknown) date) Index 0.2 L unknown) (1.5-5.0) % (unknown) (no (unknown) (unknown) COMPARISON:? (units (u nknown) date) None. unknown) (unknown) (no (unknown) (unknown) CT Scan Report (units (unknown) date) unknown) (unknown) (no (unknown) (unknown) CT abdomen pelvis (units (unknown) date) with IV contrast.? unknown) (unknown) (no (unknown) (unknown) CT angio chest PE (units (unknown) date) protocol Stat unknown) (unknown) (no (unknown) (unknown) CT scan - chest: (units (unknown) date) unknown) (unknown) (no (unknown) (unknown) Calcium 10.2 (units (u nknown) date) (8.4-10.2) mg/dL unknown) (unknown) (no (unknown) (unknown) Carbon Dioxide 29 (units (unknown) date) (22-32) mmol/L unknown) (unknown) (no (unknown) (unknown) Chief Complaint: (units (unknown) date) Dizziness unknown) (unknown) (no (unknown) (unknown) Chloride 99 (units (un known) date) (98-107) mmol/L unknown) (unknown) (no (unknown) (unknown) Comment: Findings (units (unknown) date) were discussed unknown) with Jayden Newman at 1:42 p.m. Reports recent (unknown) (no (unknown) (unknown) Complete Blood (units (unknown) date) Count AUTO DIFF unknown) Stat (unknown) (no (unknown) (unknown) Comprehensive (units ( unknown) date) Metabolic Panel unknown) Stat (unknown) (no (unknown) (unknown) Course (units (unkno wn) date) unknown) (unknown) (no (unknown) (unknown) Creatinine 0.90 (units (unknown) date) (0.52-1.04) mg/dL unknown) (unknown) (no (unknown) (unknown) D Dimer Stat (units (u nknown) date) unknown) (unknown) (no (unknown) (unknown) D-Dimer 1251 H (units (unknown) date) (<500) ng/ml unknown) (unknown) (no (unknown) (unknown) : 1980 (units (unknown) date) Acct:[id number] unknown) (unknown) (no (unknown) (unknown) : 1980 (units (unknown) date) unknown) (unknown) (no (unknown) (unknown) Date of Service: (units (unknown) date) 06/29/22 unknown) (unknown) (no (unknown) (unknown) Departure (units (unkn own) date) unknown) (unknown) (no (unknown) (unknown) Dictated by: (units (u nknown) date) Bayron Carrington M.D. unknown) on 06/29/2022 at 13:35 ? ? (unknown) (no (unknown) (unknown) Discharge Plan (units (unknown) date) unknown) (unknown) (no (unknown) (unknown) Does have some (units (unknown) date) pain with use of unknown) her left upper extremity. There is no obvious (unknown) (no (unknown) (unknown) ED Orders (units (unkn own) date) unknown) (unknown) (no (unknown) (unknown) EKG-12 Lead Stat (units (unknown) date) unknown) (unknown) (no (unknown) (unknown) ENT: Nose without (units (unknown) date) bleeding, purulent unknown) drainage. Throat without erythema, (unknown) (no (unknown) (unknown) ER Physician: (units ( unknown) date) Jayden Newman D.O. unknown) (unknown) (no (unknown) (unknown) EXTREMITIES: No (units (unknown) date) edema or joint unknown) tenderness. No erythema, swelling, warmth. (unknown) (no (unknown) (unknown) EYES: Pupils (units (u nknown) date) equal round and unknown) reactive. Extraocular motions intact. No scleral (unknown) (no (unknown) (unknown) Emergency Report (units (unknown) date) unknown) (unknown) (no (unknown) (unknown) Eos # (Auto) 300 (units (unknown) date) (0-450) /uL unknown) (unknown) (no (unknown) (unknown) Eos % (Auto) 2.4 (units (unknown) date) (2-4) % unknown) (unknown) (no (unknown) (unknown) Esophagus is (units (u nknown) date) unknown) (unknown) (no (unknown) (unknown) Estimated GFR > (units (unknown) date) 60 (>60) mL/min unknown) (unknown) (no (unknown) (unknown) Exam Narrative: (units (unknown) date) unknown) (unknown) (no (unknown) (unknown) Exam (units (unkno wn) date) unknown) (unknown) (no (unknown) (unknown) FINDINGS:? (units (unk nown) date) unknown) (unknown) (no (unknown) (unknown) For radiation (units ( unknown) date) dose reduction, unknown) the following was used:? automated exposure (unknown) (no (unknown) (unknown) GASTROINTESTINAL: (units (unknown) date) Abdomen soft, unknown) non-tender, nondistended. (unknown) (no (unknown) (unknown) GASTROINTESTINAL: (units (unknown) date) Denies nausea, unknown) vomiting, abdominal pain, diarrhea, (unknown) (no (unknown) (unknown) GENERAL: 41 [] (units (unknown) date) year old patient unknown) appears stated age. Well-developed patient, in (unknown) (no (unknown) (unknown) GENERAL: Denies (units (unknown) date) chills, fatigue, unknown) malaise, fever, sweats. (unknown) (no (unknown) (unknown) : Denies (units (unk nown) date) dysuria, unknown) frequency, incontinence, hematuria, urinary retention. (unknown) (no (unknown) (unknown) General (units (unkno wn) date) unknown) (unknown) (no (unknown) (unknown) Globulin 4.7 H (units (unknown) date) (1.7-4.1) g/dL unknown) (unknown) (no (unknown) (unknown) Glucose 102 H (units ( unknown) date) (70-100) mg/dL unknown) (unknown) (no (unknown) (unknown) HEAD: Atraumatic. (units (unknown) date) Normocephalic. unknown) (unknown) (no (unknown) (unknown) HEENT: Denies (units ( unknown) date) sinus pain, ear unknown) pain, sore throat, difficulty swallowing, (unknown) (no (unknown) (unknown) HPI - Dizziness (units (unknown) date) unknown) (unknown) (no (unknown) (unknown) HPI Narrative: (units (unknown) date) unknown) (unknown) (no (unknown) (unknown) Hct 44.5 (36-46) (units (unknown) date) % unknown) (unknown) (no (unknown) (unknown) Hgb 15.2 (units (unkno wn) date) (12.0-16.0) g/dL unknown) (unknown) (no (unknown) (unknown) History of (units (unk nown) date) Present Illness unknown) (unknown) (no (unknown) (unknown) Home Medications (units (unknown) date) unknown) (unknown) (no (unknown) (unknown) IMPRESSION:? (units (u nknown) date) unknown) (unknown) (no (unknown) (unknown) INDICATIONS:? (units ( unknown) date) SOB, critical unknown) dimer, chest pain, recent surgery, PE? (unknown) (no (unknown) (unknown) Image quality:? (units (unknown) date) Excellent.? unknown) (unknown) (no (unknown) (unknown) Imaging Data (units (u nknown) date) unknown) (unknown) (no (unknown) (unknown) Initial Vital (units ( unknown) date) Signs unknown) (unknown) (no (unknown) (unknown) Initial Vital (units ( unknown) date) Signs: unknown) (unknown) (no (unknown) (unknown) [facility] (units (unknown) date) [address] unknown) [place] [address] (unknown) (no (unknown) (unknown) [facility] (units (unknown) date) unknown) (unknown) (no (unknown) (unknown) Lab Data (units (unkno wn) date) unknown) (unknown) (no (unknown) (unknown) Lab Results (units (un known) date) unknown) (unknown) (no (unknown) (unknown) Labs: (units (unkno wn) date) unknown) (unknown) (no (unknown) (unknown) Lipase 47 (units (unkn own) date) (23-300) U/L unknown) (unknown) (no (unknown) (unknown) Lipase Stat (units (un known) date) unknown) (unknown) (no (unknown) (unknown) Loc: ED (units (unkno wn) date) unknown) (unknown) (no (unknown) (unknown) Lungs and (units (unkn own) date) pleura:? Lungs are unknown) clear.? Left calcified granuloma.? No pleural (unknown) (no (unknown) (unknown) Lymph # (Auto) (units (unknown) date) 1900 (0195-0692) unknown) /uL (unknown) (no (unknown) (unknown) Lymph % (Auto) (units (unknown) date) 17.6 L (25-40) % unknown) (unknown) (no (unknown) (unknown) MCH 30.3 (26-34) (units (unknown) date) PG unknown) (unknown) (no (unknown) (unknown) MCHC 34.1 (30-36) (units (unknown) date) % unknown) (unknown) (no (unknown) (unknown) MCV 88.8 (80-100) (units (unknown) date) fL unknown) (unknown) (no (unknown) (unknown) MDM - Dizziness (units (unknown) date) unknown) (unknown) (no (unknown) (unknown) MR#: [id number] (units (unknown) date) unknown) (unknown) (no (unknown) (unknown) MUSCULOSKELETAL: (units (unknown) date) See HPI unknown) (unknown) (no (unknown) (unknown) Magnesium 2.1 (units ( unknown) date) (1.6-2.3) mg/dL unknown) (unknown) (no (unknown) (unknown) Magnesium Stat (units (unknown) date) unknown) (unknown) (no (unknown) (unknown) Mediastinum:? (units ( unknown) date) Heart size is unknown) normal, without pericardial effusion.? No (unknown) (no (unknown) (unknown) Medical History (units (unknown) date) (Reviewed 06/29/22 unknown) @ 15:24 by Jayden Newman DO) (unknown) (no (unknown) (unknown) Medication (units (unk nown) date) Instructions unknown) Recorded Confirmed (unknown) (no (unknown) (unknown) Mode of arrival: (units (unknown) date) Ambulatory unknown) (unknown) (no (unknown) (unknown) [place] # (Auto) 400 (units (unknown) date) (0-900) /uL unknown) (unknown) (no (unknown) (unknown) [place] % (Auto) 3.8 (units (unknown) date) (3-14) % unknown) (unknown) (no (unknown) (unknown) NECK: Trachea (units ( unknown) date) midline. Non unknown) tender (unknown) (no (unknown) (unknown) NEURO: AOx3. (units (u nknown) date) unknown) (unknown) (no (unknown) (unknown) NEUROLOGIC: (units (un known) date) Denies weakness, unknown) headache, numbness, change in speech, confusion, (unknown) (no (unknown) (unknown) (normal (units (u nknown) date) spontaneous unknown) vaginal delivery) (unknown) (no (unknown) (unknown) Narrative (units (unkn own) date) unknown) (unknown) (no (unknown) (unknown) Narrative: (units (unk nown) date) unknown) (unknown) (no (unknown) (unknown) Neut # (Auto) (units ( unknown) date) 8300 H (3343-6660) unknown) /uL (unknown) (no (unknown) (unknown) Neut % (Auto) (units ( unknown) date) 75.9 H (50-75) % unknown) (unknown) (no (unknown) (unknown) No Action (units (unkn own) date) unknown) (unknown) (no (unknown) (unknown) Ordered: (units (unkno wn) date) unknown) (unknown) (no (unknown) (unknown) Ordering (units (unkno wn) date) Provider: unknown) Jayden Newman D.O. (unknown) (no (unknown) (unknown) Orders (units (unkno wn) date) unknown) (unknown) (no (unknown) (unknown) Oxygen Delivery (units (unknown) date) Method 06/29/22 unknown) 10:50 (unknown) (no (unknown) (unknown) Oxygen Delivery (units (unknown) date) Method Room Air unknown) (unknown) (no (unknown) (unknown) PROCEDURE:? CT (units (unknown) date) ANGIO CHEST PE unknown) PROTOCOL (unknown) (no (unknown) (unknown) PSYCHIATRIC: No (units (unknown) date) concerning unknown) psychosocial issues. (unknown) (no (unknown) (unknown) Patient History (units (unknown) date) unknown) (unknown) (no (unknown) (unknown) Patient: (units (unkno wn) date) Burton Diamond N unknown) MR#: [id number] (unknown) (no (unknown) (unknown) Patient: (units (unkno wn) date) Burton Diamond N unknown) (unknown) (no (unknown) (unknown) Plt Count 299 (units ( unknown) date) (150-400) X103/uL unknown) (unknown) (no (unknown) (unknown) Potassium 4.3 (units ( unknown) date) (3.4-5.1) mmol/L unknown) (unknown) (no (unknown) (unknown) Prescriptions: (units (unknown) date) unknown) (unknown) (no (unknown) (unknown) Previous (units (unknown) date) section unknown) (unknown) (no (unknown) (unknown) Procedure: CT (units ( unknown) date) angio chest PE unknown) protocol (unknown) (no (unknown) (unknown) Provider,Eduin (units (unknown) date) KISHA [Primary Care unknown) Provider] (unknown) (no (unknown) (unknown) Pulmonary (units (unkn own) date) arteries:? unknown) Pulmonary arteries are normal in size, and demonstrate no (unknown) (no (unknown) (unknown) Pulse Oximetry 99 (units (unknown) date) 06/29/22 10:50 unknown) (unknown) (no (unknown) (unknown) Pulse Oximetry 99 (units (unknown) date) 99 unknown) (unknown) (no (unknown) (unknown) Pulse Rate 85 (units ( unknown) date) 06/29/22 10:50 unknown) (unknown) (no (unknown) (unknown) Pulse Rate 85 77 (units (unknown) date) unknown) (unknown) (no (unknown) (unknown) RBC 5.01 (units (unkno wn) date) (4.0-5.2) X106/uL unknown) (unknown) (no (unknown) (unknown) RDW 13.4 (units (unkno wn) date) (11.6-14.8) % unknown) (unknown) (no (unknown) (unknown) RESPIRATORY: Clear (units (unknown) date) to auscultation. unknown) Breath sounds equal bilaterally. No wheezes, (unknown) (no (unknown) (unknown) RESPIRATORY: (units (u nknown) date) Denies dyspnea, unknown) cough, wheezing, hemoptysis, sputum. (unknown) (no (unknown) (unknown) Radiologist's (units ( unknown) date) Impression: unknown) (unknown) (no (unknown) (unknown) Recommend (units (unkn own) date) clinical unknown) correlation.? If clinically indicated consider further (unknown) (no (unknown) (unknown) Referrals: (units (unk nown) date) unknown) (unknown) (no (unknown) (unknown) Related Data (units (u nknown) date) unknown) (unknown) (no (unknown) (unknown) Respiratory Rate (units (unknown) date) 15 06/29/22 10:50 unknown) (unknown) (no (unknown) (unknown) Respiratory Rate (units (unknown) date) 15 unknown) (unknown) (no (unknown) (unknown) Result diagrams: (units (unknown) date) unknown) (unknown) (no (unknown) (unknown) Review of Systems (units (unknown) date) unknown) (unknown) (no (unknown) (unknown) S/P laparoscopic (units (unknown) date) hysterectomy unknown) (unknown) (no (unknown) (unknown) SKIN: Denies (units (u nknown) date) rash, skin unknown) lesions, or other (unknown) (no (unknown) (unknown) SKIN: No rash or (units (unknown) date) erythema of unknown) visible areas (unknown) (no (unknown) (unknown) Sensation, muscle (units (unknown) date) strength and unknown) pulses intact at wrist and fingers. Use of arm (unknown) (no (unknown) (unknown) Signed By: (units (unk nown) date) unknown) (unknown) (no (unknown) (unknown) Signed (units (unkno wn) date) unknown) (unknown) (no (unknown) (unknown) Smoking Status: (units (unknown) date) Never smoker unknown) (unknown) (no (unknown) (unknown) Social History (units (unknown) date) (Reviewed 06/29/22 unknown) @ 15:24 by Jayden Newman DO) (unknown) (no (unknown) (unknown) Sodium 143 (units (unk nown) date) (137-145) mmol/L unknown) (unknown) (no (unknown) (unknown) Source: patient (units (unknown) date) unknown) (unknown) (no (unknown) (unknown) Stated Complaint: (units (unknown) date) surgery friday, unknown) lt arm numb, ligheaded, BP up (unknown) (no (unknown) (unknown) Substance Use (units ( unknown) date) Type: does not use unknown) (unknown) (no (unknown) (unknown) Surgical History (units (unknown) date) (Reviewed 06/29/22 unknown) @ 15:24 by Jayden Newman DO) (unknown) (no (unknown) (unknown) TECHNIQUE:? (units (un known) date) unknown) (unknown) (no (unknown) (unknown) Temperature 97.0 (units (unknown) date) F L 06/29/22 10:50 unknown) (unknown) (no (unknown) (unknown) Temperature 97.0 (units (unknown) date) F L unknown) (unknown) (no (unknown) (unknown) Time Seen by (units (u nknown) date) Provider: 06/29/22 unknown) 11:51 (unknown) (no (unknown) (unknown) Total Bilirubin (units (unknown) date) 0.8 (0.2-1.3) unknown) mg/dL (unknown) (no (unknown) (unknown) Total Creatine (units (unknown) date) Kinase 142 H unknown) (30-135) U/L (unknown) (no (unknown) (unknown) Total Protein 9.6 (units (unknown) date) H (6.3-8.2) g/dL unknown) (unknown) (no (unknown) (unknown) Troponin + CK (units ( unknown) date) Cardiac Panel Stat unknown) (unknown) (no (unknown) (unknown) Troponin I < (units (u nknown) date) 0.012 (0.01-0.034) unknown) ng/mL (unknown) (no (unknown) (unknown) US periph venous (units (unknown) date) up extrem lt Stat unknown) (unknown) (no (unknown) (unknown) Vital Signs - 8 (units (unknown) date) hr unknown) (unknown) (no (unknown) (unknown) Vital Signs (units (un known) date) unknown) (unknown) (no (unknown) (unknown) Vital signs: (units (u nknown) date) unknown) (unknown) (no (unknown) (unknown) WBC 11.0 (units (unkno wn) date) (4.5-11.0) X103/uL unknown) (unknown) (no (unknown) (unknown) XR chest 1V Stat (units (unknown) date) unknown) (unknown) (no (unknown) (unknown) [Embedded Image (units (unknown) date) Not Available] unknown) (unknown) (no (unknown) (unknown) adenopathy.? (units (u nknown) date) unknown) (unknown) (no (unknown) (unknown) adjustment of mA (units (unknown) date) and/or kV unknown) according to patient size.? (unknown) (no (unknown) (unknown) alcohol intake (units (unknown) date) frequency: unknown) holidays/special occasions only (unknown) (no (unknown) (unknown) appear intact (units ( unknown) date) unknown) (unknown) (no (unknown) (unknown) constipation, (units ( unknown) date) melena. unknown) (unknown) (no (unknown) (unknown) control, (units (unkno wn) date) unknown) (unknown) (no (unknown) (unknown) denies fever or (units (unknown) date) chills. She denies unknown) runny nose, sore throat. She has no nausea, (unknown) (no (unknown) (unknown) dizziness. (units (unk nown) date) unknown) (unknown) (no (unknown) (unknown) effusions or (units (u nknown) date) unknown) (unknown) (no (unknown) (unknown) evaluation with (units (unknown) date) unknown) (unknown) (no (unknown) (unknown) exacerbate some (units (unknown) date) of her pain unknown) (unknown) (no (unknown) (unknown) from the (units (unkno wn) date) unknown) (unknown) (no (unknown) (unknown) hemidiaphragm, (units (unknown) date) unknown) (unknown) (no (unknown) (unknown) here for (units (unkno wn) date) evaluation of unknown) possible pulmonary embolism (unknown) (no (unknown) (unknown) hilar (units (unkno wn) date) adenopathy.? unknown) Thoracic aorta is normal in caliber and enhancement.? (unknown) (no (unknown) (unknown) ibuprofen Allergy (units (unknown) date) Verified 06/29/22 unknown) 10:50 (unknown) (no (unknown) (unknown) icterus. No (units (un known) date) injection or unknown) drainage. (unknown) (no (unknown) (unknown) intensity (units (unkn own) date) unknown) (unknown) (no (unknown) (unknown) intraluminal (units (u nknown) date) filling defects to unknown) suggest central pulmonary embolism.? (unknown) (no (unknown) (unknown) mediastinal or (units (unknown) date) unknown) (unknown) (no (unknown) (unknown) mild distress. (units (unknown) date) unknown) (unknown) (no (unknown) (unknown) normal in (units (unkn own) date) caliber, without unknown) hiatal hernia.? (unknown) (no (unknown) (unknown) on last Friday. (units (unknown) date) unknown) (unknown) (no (unknown) (unknown) pain on palpation (units (unknown) date) unknown) (unknown) (no (unknown) (unknown) pantoprazole 40 (units (unknown) date) mg tablet,delayed unknown) 40 mg PO DAILY 12/10/21 12/10/21 (unknown) (no (unknown) (unknown) pantoprazole 40 (units (unknown) date) mg tablet,delayed unknown) release (DR/EC) (unknown) (no (unknown) (unknown) pneumothorax.? (units (unknown) date) Central and unknown) peripheral airways are patent.? (unknown) (no (unknown) (unknown) projection (MIP) (units (unknown) date) coronal and unknown) sagittal reformats were then acquired through the (unknown) (no (unknown) (unknown) pulmonary apices (units (unknown) date) to the posterior unknown) costophrenic angles.? 3-dimensional maximum (unknown) (no (unknown) (unknown) rales, or (units (unkn own) date) rhonchi. unknown) (unknown) (no (unknown) (unknown) release (units (unkno wn) date) unknown) (unknown) (no (unknown) (unknown) seizures, (units (unkn own) date) incoordination. unknown) (unknown) (no (unknown) (unknown) some dizziness (units (unknown) date) over the past few unknown) days. She denies any cough or chest pain. She (unknown) (no (unknown) (unknown) some left arm (units ( unknown) date) discomfort and unknown) heaviness with fatigue, shortness of breath and (unknown) (no (unknown) (unknown) surgery (units (unkno wn) date) unknown) (unknown) (no (unknown) (unknown) swelling, redness (units (unknown) date) or weakness. She unknown) states that when hospitalized her IV was in (unknown) (no (unknown) (unknown) the opposite arm. (units (unknown) date) She had spoken unknown) with her primary care provider's and was sent (unknown) (no (unknown) (unknown) thorax.? (units (unkno wn) date) unknown) (unknown) (no (unknown) (unknown) throughout.? (units (u nknown) date) Thyroid gland is unknown) unremarkable.? No axillary or supraclavicular (unknown) (no (unknown) (unknown) tonsillar (units (unkn own) date) hypertrophy or unknown) exudate. Airway patent. (unknown) (no (unknown) (unknown) vomiting or (units (un known) date) diarrhea. She unknown) denies worsening pain with deep breath or exertion. Result panel 10 (unknown) (no (unknown) (unknown) (no value) (units (unk nown) date) unknown) (unknown) (no (unknown) (unknown) ().? (units (unkno wn) date) unknown) (unknown) (no (unknown) (unknown) [id number] (units (unkno wn) date) unknown) (unknown) (no (unknown) (unknown) 1. No pulmonary (units (unknown) date) embolism. unknown) (unknown) (no (unknown) (unknown) 06/29/22 06/29/22 (units (unknown) date) 06/29/22 unknown) Range/Units (unknown) (no (unknown) (unknown) 06/29/22 10:53 (units (unknown) date) unknown) (unknown) (no (unknown) (unknown) 06/29/22 11:00 (units (unknown) date) unknown) (unknown) (no (unknown) (unknown) 06/29/22 11:24 (units (unknown) date) unknown) (unknown) (no (unknown) (unknown) 06/29/22 11:56 (units (unknown) date) unknown) (unknown) (no (unknown) (unknown) 06/29/22 13:27 (units (unknown) date) unknown) (unknown) (no (unknown) (unknown) 06/29/22 (units (unkno wn) date) unknown) (unknown) (no (unknown) (unknown) 10:50 06/29/22 (units (unknown) date) unknown) (unknown) (no (unknown) (unknown) 11:00 11:00 11:00 (units (unknown) date) unknown) (unknown) (no (unknown) (unknown) 12 point review (units (unknown) date) of systems is unknown) negative except for those stated above (unknown) (no (unknown) (unknown) [address] [place] (units (unknown) date) unknown) (unknown) (no (unknown) (unknown) 12:38 06/29/22 (units (unknown) date) unknown) (unknown) (no (unknown) (unknown) 12:38 (units (unkno wn) date) unknown) (unknown) (no (unknown) (unknown) 13:00 06/29/22 (units (unknown) date) unknown) (unknown) (no (unknown) (unknown) 13:30 06/29/22 (units (unknown) date) unknown) (unknown) (no (unknown) (unknown) 13:30 (units (unkno wn) date) unknown) (unknown) (no (unknown) (unknown) 14:03 06/29/22 (units (unknown) date) unknown) (unknown) (no (unknown) (unknown) 14:30 (units (unkno wn) date) unknown) (unknown) (no (unknown) (unknown) 15:00 (units (unkno wn) date) unknown) (unknown) (no (unknown) (unknown) 2. No acute (units (un known) date) airspace opacity. unknown) (unknown) (no (unknown) (unknown) 3. Small focus of (units (unknown) date) pneumoperitoneum.? unknown) This is presumably postsurgical in nature.? (unknown) (no (unknown) (unknown) 40 mg PO DAILY (units (unknown) date) unknown) (unknown) (no (unknown) (unknown) 41-year-old (units (un known) date) female nonsmoker unknown) presents with in the chief complaint of (unknown) (no (unknown) (unknown) ? (units (unkno wn) date) unknown) (unknown) (no (unknown) (unknown) ALT 81 H (<35) (units (unknown) date) IU/L unknown) (unknown) (no (unknown) (unknown) AST 53 H (14-36) (units (unknown) date) IU/L unknown) (unknown) (no (unknown) (unknown) Abdomen:? Post (units (unknown) date) cholecystectomy.? unknown) Small focus of gas under the right (unknown) (no (unknown) (unknown) Accession Number: (units (unknown) date) [id number] ?? unknown) (unknown) (no (unknown) (unknown) Acct:[id number] (units (unknown) date) unknown) (unknown) (no (unknown) (unknown) After the (units (unkn own) date) administration of unknown) intravenous contrast, 2 mm thick sections acquired (unknown) (no (unknown) (unknown) Age/Sex: 41 / F (units (unknown) date) unknown) (unknown) (no (unknown) (unknown) Albumin 4.9 (units (un known) date) (3.5-5.0) g/dL unknown) (unknown) (no (unknown) (unknown) Albumin/Globulin (units (unknown) date) Ratio 1.0 unknown) (1.0-2.8) (unknown) (no (unknown) (unknown) Alkaline (units (unkno wn) date) Phosphatase 64 unknown) (38-126) U/L (unknown) (no (unknown) (unknown) Allergies (units (unkn own) date) unknown) (unknown) (no (unknown) (unknown) Allergy/AdvReac (units (unknown) date) Type Severity unknown) Reaction Status Date / Time (unknown) (no (unknown) (unknown) [place] (units ( unknown) date) [address] unknown) (unknown) (no (unknown) (unknown) Approved by: (units (u nknown) date) Bayron Carrington M.D. unknown) on 06/29/2022 at 13:44 ? (unknown) (no (unknown) (unknown) BACK: Nontender (units (unknown) date) without deformity unknown) or crepitance. No flank tenderness. (unknown) (no (unknown) (unknown) BUN 9 (7-17) (units (u nknown) date) mg/dL unknown) (unknown) (no (unknown) (unknown) BUN/Creatinine (units (unknown) date) Ratio 10.0 (6-22) unknown) (unknown) (no (unknown) (unknown) Baso # (Auto) 0 (units (unknown) date) (0-100) /uL unknown) (unknown) (no (unknown) (unknown) Baso % (Auto) 0.3 (units (unknown) date) (0-2) % unknown) (unknown) (no (unknown) (unknown) Blood Pressure (units (unknown) date) 116/87 120/86 unknown) (unknown) (no (unknown) (unknown) Blood Pressure (units (unknown) date) 134/94 H 06/29/22 unknown) 10:50 (unknown) (no (unknown) (unknown) Blood Pressure (units (unknown) date) 134/94 H 131/86 unknown) (unknown) (no (unknown) (unknown) Blood Pressure (units (unknown) date) unknown) (unknown) (no (unknown) (unknown) Bones and chest (units (unknown) date) wall:? No unknown) suspicious bony lesions.? Ribs and thoracic spine (unknown) (no (unknown) (unknown) CARDIOVASCULAR: (units (unknown) date) Regular rate and unknown) rhythm without murmurs, gallops, or rubs. No (unknown) (no (unknown) (unknown) CARDIOVASCULAR: (units (unknown) date) See HPI unknown) (unknown) (no (unknown) (unknown) CK-MB (CK-2) < (units (unknown) date) 0.22 (<2.37) ng/mL unknown) (unknown) (no (unknown) (unknown) CK-MB (CK-2) Rel (units (unknown) date) Index 0.2 L unknown) (1.5-5.0) % (unknown) (no (unknown) (unknown) COMPARISON:? (units (u nknown) date) None. unknown) (unknown) (no (unknown) (unknown) CT Scan Report (units (unknown) date) unknown) (unknown) (no (unknown) (unknown) CT abdomen pelvis (units (unknown) date) with IV contrast.? unknown) (unknown) (no (unknown) (unknown) CT angio chest PE (units (unknown) date) protocol Stat unknown) (unknown) (no (unknown) (unknown) CT scan - chest: (units (unknown) date) unknown) (unknown) (no (unknown) (unknown) Calcium 10.2 (units (u nknown) date) (8.4-10.2) mg/dL unknown) (unknown) (no (unknown) (unknown) Carbon Dioxide 29 (units (unknown) date) (22-32) mmol/L unknown) (unknown) (no (unknown) (unknown) Chief Complaint: (units (unknown) date) Dizziness unknown) (unknown) (no (unknown) (unknown) Chloride 99 (units (un known) date) (98-107) mmol/L unknown) (unknown) (no (unknown) (unknown) Comment: Findings (units (unknown) date) were discussed unknown) with Jayden Newman at 1:42 p.m. Reports recent (unknown) (no (unknown) (unknown) Complete Blood (units (unknown) date) Count AUTO DIFF unknown) Stat (unknown) (no (unknown) (unknown) Comprehensive (units ( unknown) date) Metabolic Panel unknown) Stat (unknown) (no (unknown) (unknown) Course (units (unkno wn) date) unknown) (unknown) (no (unknown) (unknown) Creatinine 0.90 (units (unknown) date) (0.52-1.04) mg/dL unknown) (unknown) (no (unknown) (unknown) D Dimer Stat (units (u nknown) date) unknown) (unknown) (no (unknown) (unknown) D-Dimer 1251 H (units (unknown) date) (<500) ng/ml unknown) (unknown) (no (unknown) (unknown) : 1980 (units (unknown) date) Acct:[id number] unknown) (unknown) (no (unknown) (unknown) : 1980 (units (unknown) date) unknown) (unknown) (no (unknown) (unknown) Date of Service: (units (unknown) date) 06/29/22 unknown) (unknown) (no (unknown) (unknown) Departure (units (unkn own) date) unknown) (unknown) (no (unknown) (unknown) Dictated by: (units (u nknown) date) Bayron Carrington M.D. unknown) on 06/29/2022 at 13:35 ? ? (unknown) (no (unknown) (unknown) Discharge Plan (units (unknown) date) unknown) (unknown) (no (unknown) (unknown) Does have some (units (unknown) date) pain with use of unknown) her left upper extremity. There is no obvious (unknown) (no (unknown) (unknown) ED Orders (units (unkn own) date) unknown) (unknown) (no (unknown) (unknown) EKG-12 Lead Stat (units (unknown) date) unknown) (unknown) (no (unknown) (unknown) ENT: Nose without (units (unknown) date) bleeding, purulent unknown) drainage. Throat without erythema, (unknown) (no (unknown) (unknown) ER Physician: (units ( unknown) date) Jayden Newman D.O. unknown) (unknown) (no (unknown) (unknown) EXTREMITIES: No (units (unknown) date) edema or joint unknown) tenderness. No erythema, swelling, warmth. (unknown) (no (unknown) (unknown) EYES: Pupils (units (u nknown) date) equal round and unknown) reactive. Extraocular motions intact. No scleral (unknown) (no (unknown) (unknown) Emergency Report (units (unknown) date) unknown) (unknown) (no (unknown) (unknown) Eos # (Auto) 300 (units (unknown) date) (0-450) /uL unknown) (unknown) (no (unknown) (unknown) Eos % (Auto) 2.4 (units (unknown) date) (2-4) % unknown) (unknown) (no (unknown) (unknown) Esophagus is (units (u nknown) date) unknown) (unknown) (no (unknown) (unknown) Estimated GFR > (units (unknown) date) 60 (>60) mL/min unknown) (unknown) (no (unknown) (unknown) Exam Narrative: (units (unknown) date) unknown) (unknown) (no (unknown) (unknown) Exam (units (unkno wn) date) unknown) (unknown) (no (unknown) (unknown) FINDINGS:? (units (unk nown) date) unknown) (unknown) (no (unknown) (unknown) For radiation (units ( unknown) date) dose reduction, unknown) the following was used:? automated exposure (unknown) (no (unknown) (unknown) GASTROINTESTINAL: (units (unknown) date) Abdomen soft, unknown) non-tender, nondistended. (unknown) (no (unknown) (unknown) GASTROINTESTINAL: (units (unknown) date) Denies nausea, unknown) vomiting, abdominal pain, diarrhea, (unknown) (no (unknown) (unknown) GENERAL: 41 [] (units (unknown) date) year old patient unknown) appears stated age. Well-developed patient, in (unknown) (no (unknown) (unknown) GENERAL: Denies (units (unknown) date) chills, fatigue, unknown) malaise, fever, sweats. (unknown) (no (unknown) (unknown) : Denies (units (unk nown) date) dysuria, unknown) frequency, incontinence, hematuria, urinary retention. (unknown) (no (unknown) (unknown) General (units (unkno wn) date) unknown) (unknown) (no (unknown) (unknown) Globulin 4.7 H (units (unknown) date) (1.7-4.1) g/dL unknown) (unknown) (no (unknown) (unknown) Glucose 102 H (units ( unknown) date) (70-100) mg/dL unknown) (unknown) (no (unknown) (unknown) HEAD: Atraumatic. (units (unknown) date) Normocephalic. unknown) (unknown) (no (unknown) (unknown) HEENT: Denies (units ( unknown) date) sinus pain, ear unknown) pain, sore throat, difficulty swallowing, (unknown) (no (unknown) (unknown) HPI - Dizziness (units (unknown) date) unknown) (unknown) (no (unknown) (unknown) HPI Narrative: (units (unknown) date) unknown) (unknown) (no (unknown) (unknown) Hct 44.5 (36-46) (units (unknown) date) % unknown) (unknown) (no (unknown) (unknown) Hgb 15.2 (units (unkno wn) date) (12.0-16.0) g/dL unknown) (unknown) (no (unknown) (unknown) History of (units (unk nown) date) Present Illness unknown) (unknown) (no (unknown) (unknown) Home Medications (units (unknown) date) unknown) (unknown) (no (unknown) (unknown) IMPRESSION:? (units (u nknown) date) unknown) (unknown) (no (unknown) (unknown) INDICATIONS:? (units ( unknown) date) SOB, critical unknown) dimer, chest pain, recent surgery, PE? (unknown) (no (unknown) (unknown) Image quality:? (units (unknown) date) Excellent.? unknown) (unknown) (no (unknown) (unknown) Imaging Data (units (u nknown) date) unknown) (unknown) (no (unknown) (unknown) Initial Vital (units ( unknown) date) Signs unknown) (unknown) (no (unknown) (unknown) Initial Vital (units ( unknown) date) Signs: unknown) (unknown) (no (unknown) (unknown) [facility] (units (unknown) date) [address] unknown) [place] [address] (unknown) (no (unknown) (unknown) [facility] (units (unknown) date) unknown) (unknown) (no (unknown) (unknown) Lab Data (units (unkno wn) date) unknown) (unknown) (no (unknown) (unknown) Lab Results (units (un known) date) unknown) (unknown) (no (unknown) (unknown) Labs: (units (unkno wn) date) unknown) (unknown) (no (unknown) (unknown) Lipase 47 (units (unkn own) date) (23-300) U/L unknown) (unknown) (no (unknown) (unknown) Lipase Stat (units (un known) date) unknown) (unknown) (no (unknown) (unknown) Loc: ED (units (unkno wn) date) unknown) (unknown) (no (unknown) (unknown) Lungs and (units (unkn own) date) pleura:? Lungs are unknown) clear.? Left calcified granuloma.? No pleural (unknown) (no (unknown) (unknown) Lymph # (Auto) (units (unknown) date) 1900 (3940-9114) unknown) /uL (unknown) (no (unknown) (unknown) Lymph % (Auto) (units (unknown) date) 17.6 L (25-40) % unknown) (unknown) (no (unknown) (unknown) MCH 30.3 (26-34) (units (unknown) date) PG unknown) (unknown) (no (unknown) (unknown) MCHC 34.1 (30-36) (units (unknown) date) % unknown) (unknown) (no (unknown) (unknown) MCV 88.8 (80-100) (units (unknown) date) fL unknown) (unknown) (no (unknown) (unknown) MDM - Dizziness (units (unknown) date) unknown) (unknown) (no (unknown) (unknown) MR#: [id number] (units (unknown) date) unknown) (unknown) (no (unknown) (unknown) MUSCULOSKELETAL: (units (unknown) date) See HPI unknown) (unknown) (no (unknown) (unknown) Magnesium 2.1 (units ( unknown) date) (1.6-2.3) mg/dL unknown) (unknown) (no (unknown) (unknown) Magnesium Stat (units (unknown) date) unknown) (unknown) (no (unknown) (unknown) Mediastinum:? (units ( unknown) date) Heart size is unknown) normal, without pericardial effusion.? No (unknown) (no (unknown) (unknown) Medical History (units (unknown) date) (Reviewed 06/29/22 unknown) @ 15:24 by Jayden Newman DO) (unknown) (no (unknown) (unknown) Medication (units (unk nown) date) Instructions unknown) Recorded Confirmed (unknown) (no (unknown) (unknown) Mode of arrival: (units (unknown) date) Ambulatory unknown) (unknown) (no (unknown) (unknown) [place] # (Auto) 400 (units (unknown) date) (0-900) /uL unknown) (unknown) (no (unknown) (unknown) [place] % (Auto) 3.8 (units (unknown) date) (3-14) % unknown) (unknown) (no (unknown) (unknown) NECK: Trachea (units ( unknown) date) midline. Non unknown) tender (unknown) (no (unknown) (unknown) NEURO: AOx3. (units (u nknown) date) unknown) (unknown) (no (unknown) (unknown) NEUROLOGIC: (units (un known) date) Denies weakness, unknown) headache, numbness, change in speech, confusion, (unknown) (no (unknown) (unknown) (normal (units (u nknown) date) spontaneous unknown) vaginal delivery) (unknown) (no (unknown) (unknown) Narrative (units (unkn own) date) unknown) (unknown) (no (unknown) (unknown) Narrative: (units (unk nown) date) unknown) (unknown) (no (unknown) (unknown) Neut # (Auto) (units ( unknown) date) 8300 H (5861-4998) unknown) /uL (unknown) (no (unknown) (unknown) Neut % (Auto) (units ( unknown) date) 75.9 H (50-75) % unknown) (unknown) (no (unknown) (unknown) No Action (units (unkn own) date) unknown) (unknown) (no (unknown) (unknown) Ordered: (units (unkno wn) date) unknown) (unknown) (no (unknown) (unknown) Ordering (units (unkno wn) date) Provider: unknown) Jayden Newman D.O. (unknown) (no (unknown) (unknown) Orders (units (unkno wn) date) unknown) (unknown) (no (unknown) (unknown) Oxygen Delivery (units (unknown) date) Method 06/29/22 unknown) 10:50 (unknown) (no (unknown) (unknown) Oxygen Delivery (units (unknown) date) Method Room Air unknown) (unknown) (no (unknown) (unknown) Oxygen Delivery (units (unknown) date) Method unknown) (unknown) (no (unknown) (unknown) PROCEDURE:? CT (units (unknown) date) ANGIO CHEST PE unknown) PROTOCOL (unknown) (no (unknown) (unknown) PSYCHIATRIC: No (units (unknown) date) concerning unknown) psychosocial issues. (unknown) (no (unknown) (unknown) Patient History (units (unknown) date) unknown) (unknown) (no (unknown) (unknown) Patient: (units (unkno wn) date) [place] N unknown) MR#: [id number] (unknown) (no (unknown) (unknown) Patient: (units (unkno wn) date) [place] N unknown) (unknown) (no (unknown) (unknown) Plt Count 299 (units ( unknown) date) (150-400) X103/uL unknown) (unknown) (no (unknown) (unknown) Potassium 4.3 (units ( unknown) date) (3.4-5.1) mmol/L unknown) (unknown) (no (unknown) (unknown) Prescriptions: (units (unknown) date) unknown) (unknown) (no (unknown) (unknown) Previous (units (unknown) date) section unknown) (unknown) (no (unknown) (unknown) Procedure: CT (units ( unknown) date) angio chest PE unknown) protocol (unknown) (no (unknown) (unknown) Provider,Eduin (units (unknown) date) KISHA [Primary Care unknown) Provider] (unknown) (no (unknown) (unknown) Pulmonary (units (unkn own) date) arteries:? unknown) Pulmonary arteries are normal in size, and demonstrate no (unknown) (no (unknown) (unknown) Pulse Oximetry 99 (units (unknown) date) 06/29/22 10:50 unknown) (unknown) (no (unknown) (unknown) Pulse Oximetry 99 (units (unknown) date) 91 98 unknown) (unknown) (no (unknown) (unknown) Pulse Oximetry 99 (units (unknown) date) 99 unknown) (unknown) (no (unknown) (unknown) Pulse Oximetry 99 (units (unknown) date) unknown) (unknown) (no (unknown) (unknown) Pulse Rate 73 (units ( unknown) date) unknown) (unknown) (no (unknown) (unknown) Pulse Rate 75 68 (units (unknown) date) 77 unknown) (unknown) (no (unknown) (unknown) Pulse Rate 84 (units ( unknown) date) unknown) (unknown) (no (unknown) (unknown) Pulse Rate 85 (units ( unknown) date) 06/29/22 10:50 unknown) (unknown) (no (unknown) (unknown) Pulse Rate 85 77 (units (unknown) date) unknown) (unknown) (no (unknown) (unknown) RBC 5.01 (units (unkno wn) date) (4.0-5.2) X106/uL unknown) (unknown) (no (unknown) (unknown) RDW 13.4 (units (unkno wn) date) (11.6-14.8) % unknown) (unknown) (no (unknown) (unknown) RESPIRATORY: Clear (units (unknown) date) to auscultation. unknown) Breath sounds equal bilaterally. No wheezes, (unknown) (no (unknown) (unknown) RESPIRATORY: (units (u nknown) date) Denies dyspnea, unknown) cough, wheezing, hemoptysis, sputum. (unknown) (no (unknown) (unknown) Radiologist's (units ( unknown) date) Impression: unknown) (unknown) (no (unknown) (unknown) Recommend (units (unkn own) date) clinical unknown) correlation.? If clinically indicated consider further (unknown) (no (unknown) (unknown) Referrals: (units (unk nown) date) unknown) (unknown) (no (unknown) (unknown) Related Data (units (u nknown) date) unknown) (unknown) (no (unknown) (unknown) Respiratory Rate (units (unknown) date) 15 06/29/22 10:50 unknown) (unknown) (no (unknown) (unknown) Respiratory Rate (units (unknown) date) 15 unknown) (unknown) (no (unknown) (unknown) Respiratory Rate (units (unknown) date) unknown) (unknown) (no (unknown) (unknown) Result diagrams: (units (unknown) date) unknown) (unknown) (no (unknown) (unknown) Review of Systems (units (unknown) date) unknown) (unknown) (no (unknown) (unknown) S/P laparoscopic (units (unknown) date) hysterectomy unknown) (unknown) (no (unknown) (unknown) SKIN: Denies (units (u nknown) date) rash, skin unknown) lesions, or other (unknown) (no (unknown) (unknown) SKIN: No rash or (units (unknown) date) erythema of unknown) visible areas (unknown) (no (unknown) (unknown) Sensation, muscle (units (unknown) date) strength and unknown) pulses intact at wrist and fingers. Use of arm (unknown) (no (unknown) (unknown) Signed By: (units (unk nown) date) unknown) (unknown) (no (unknown) (unknown) Signed (units (unkno wn) date) unknown) (unknown) (no (unknown) (unknown) Smoking Status: (units (unknown) date) Never smoker unknown) (unknown) (no (unknown) (unknown) Social History (units (unknown) date) (Reviewed 06/29/22 unknown) @ 15:24 by Jayden Newman DO) (unknown) (no (unknown) (unknown) Sodium 143 (units (unk nown) date) (137-145) mmol/L unknown) (unknown) (no (unknown) (unknown) Source: patient (units (unknown) date) unknown) (unknown) (no (unknown) (unknown) Stated Complaint: (units (unknown) date) surgery friday, unknown) lt arm numb, ligheaded, BP up (unknown) (no (unknown) (unknown) Substance Use (units ( unknown) date) Type: does not use unknown) (unknown) (no (unknown) (unknown) Surgical History (units (unknown) date) (Reviewed 06/29/22 unknown) @ 15:24 by Jayden Newman DO) (unknown) (no (unknown) (unknown) TECHNIQUE:? (units (un known) date) unknown) (unknown) (no (unknown) (unknown) Temperature 97.0 (units (unknown) date) F L 06/29/22 10:50 unknown) (unknown) (no (unknown) (unknown) Temperature 97.0 (units (unknown) date) F L unknown) (unknown) (no (unknown) (unknown) Temperature (units (un known) date) unknown) (unknown) (no (unknown) (unknown) Time Seen by (units (u nknown) date) Provider: 06/29/22 unknown) 11:51 (unknown) (no (unknown) (unknown) Total Bilirubin (units (unknown) date) 0.8 (0.2-1.3) unknown) mg/dL (unknown) (no (unknown) (unknown) Total Creatine (units (unknown) date) Kinase 142 H unknown) (30-135) U/L (unknown) (no (unknown) (unknown) Total Protein 9.6 (units (unknown) date) H (6.3-8.2) g/dL unknown) (unknown) (no (unknown) (unknown) Troponin + CK (units ( unknown) date) Cardiac Panel Stat unknown) (unknown) (no (unknown) (unknown) Troponin I < (units (u nknown) date) 0.012 (0.01-0.034) unknown) ng/mL (unknown) (no (unknown) (unknown) US periph venous (units (unknown) date) up extrem lt Stat unknown) (unknown) (no (unknown) (unknown) Vital Signs - 8 (units (unknown) date) hr unknown) (unknown) (no (unknown) (unknown) Vital Signs (units (un known) date) unknown) (unknown) (no (unknown) (unknown) Vital signs: (units (u nknown) date) unknown) (unknown) (no (unknown) (unknown) WBC 11.0 (units (unkno wn) date) (4.5-11.0) X103/uL unknown) (unknown) (no (unknown) (unknown) XR chest 1V Stat (units (unknown) date) unknown) (unknown) (no (unknown) (unknown) [Embedded Image (units (unknown) date) Not Available] unknown) (unknown) (no (unknown) (unknown) adenopathy.? (units (u nknown) date) unknown) (unknown) (no (unknown) (unknown) adjustment of mA (units (unknown) date) and/or kV unknown) according to patient size.? (unknown) (no (unknown) (unknown) alcohol intake (units (unknown) date) frequency: unknown) holidays/special occasions only (unknown) (no (unknown) (unknown) appear intact (units ( unknown) date) unknown) (unknown) (no (unknown) (unknown) constipation, (units ( unknown) date) melena. unknown) (unknown) (no (unknown) (unknown) control, (units (unkno wn) date) unknown) (unknown) (no (unknown) (unknown) denies fever or (units (unknown) date) chills. She denies unknown) runny nose, sore throat. She has no nausea, (unknown) (no (unknown) (unknown) dizziness. (units (unk nown) date) unknown) (unknown) (no (unknown) (unknown) effusions or (units (u nknown) date) unknown) (unknown) (no (unknown) (unknown) evaluation with (units (unknown) date) unknown) (unknown) (no (unknown) (unknown) exacerbate some (units (unknown) date) of her pain unknown) (unknown) (no (unknown) (unknown) from the (units (unkno wn) date) unknown) (unknown) (no (unknown) (unknown) hemidiaphragm, (units (unknown) date) unknown) (unknown) (no (unknown) (unknown) here for (units (unkno wn) date) evaluation of unknown) possible pulmonary embolism (unknown) (no (unknown) (unknown) hilar (units (unkno wn) date) adenopathy.? unknown) Thoracic aorta is normal in caliber and enhancement.? (unknown) (no (unknown) (unknown) ibuprofen Allergy (units (unknown) date) Verified 06/29/22 unknown) 10:50 (unknown) (no (unknown) (unknown) icterus. No (units (un known) date) injection or unknown) drainage. (unknown) (no (unknown) (unknown) intensity (units (unkn own) date) unknown) (unknown) (no (unknown) (unknown) intraluminal (units (u nknown) date) filling defects to unknown) suggest central pulmonary embolism.? (unknown) (no (unknown) (unknown) mediastinal or (units (unknown) date) unknown) (unknown) (no (unknown) (unknown) mild distress. (units (unknown) date) unknown) (unknown) (no (unknown) (unknown) normal in (units (unkn own) date) caliber, without unknown) hiatal hernia.? (unknown) (no (unknown) (unknown) on last Friday. (units (unknown) date) unknown) (unknown) (no (unknown) (unknown) pain on palpation (units (unknown) date) unknown) (unknown) (no (unknown) (unknown) pantoprazole 40 (units (unknown) date) mg tablet,delayed unknown) 40 mg PO DAILY 12/10/21 12/10/21 (unknown) (no (unknown) (unknown) pantoprazole 40 (units (unknown) date) mg tablet,delayed unknown) release (DR/EC) (unknown) (no (unknown) (unknown) pneumothorax.? (units (unknown) date) Central and unknown) peripheral airways are patent.? (unknown) (no (unknown) (unknown) projection (MIP) (units (unknown) date) coronal and unknown) sagittal reformats were then acquired through the (unknown) (no (unknown) (unknown) pulmonary apices (units (unknown) date) to the posterior unknown) costophrenic angles.? 3-dimensional maximum (unknown) (no (unknown) (unknown) rales, or (units (unkn own) date) rhonchi. unknown) (unknown) (no (unknown) (unknown) release (units (unkno wn) date) unknown) (unknown) (no (unknown) (unknown) seizures, (units (unkn own) date) incoordination. unknown) (unknown) (no (unknown) (unknown) some dizziness (units (unknown) date) over the past few unknown) days. She denies any cough or chest pain. She (unknown) (no (unknown) (unknown) some left arm (units ( unknown) date) discomfort and unknown) heaviness with fatigue, shortness of breath and (unknown) (no (unknown) (unknown) surgery (units (unkno wn) date) unknown) (unknown) (no (unknown) (unknown) swelling, redness (units (unknown) date) or weakness. She unknown) states that when hospitalized her IV was in (unknown) (no (unknown) (unknown) the opposite arm. (units (unknown) date) She had spoken unknown) with her primary care provider's and was sent (unknown) (no (unknown) (unknown) thorax.? (units (unkno wn) date) unknown) (unknown) (no (unknown) (unknown) throughout.? (units (u nknown) date) Thyroid gland is unknown) unremarkable.? No axillary or supraclavicular (unknown) (no (unknown) (unknown) tonsillar (units (unkn own) date) hypertrophy or unknown) exudate. Airway patent. (unknown) (no (unknown) (unknown) vomiting or (units (un known) date) diarrhea. She unknown) denies worsening pain with deep breath or exertion. Result panel 11 (unknown) (no (unknown) (unknown) (no value) (units (unk nown) date) unknown) (unknown) (no (unknown) (unknown) <Electronically (units (unknown) date) signed by Jayden Newman D.O.> (unknown) (no (unknown) (unknown) ().? (units (unkno wn) date) unknown) (unknown) (no (unknown) (unknown) *Please continue (units (unknown) date) to take your unknown) regular medications as directed. (unknown) (no (unknown) (unknown) *Please follow up (units (unknown) date) with your primary unknown) care provider in 2-3 days, call for an (unknown) (no (unknown) (unknown) *Return to (units (unk nown) date) Emergency unknown) Department if you should have any new, worsening or (unknown) (no (unknown) (unknown) *What to do: (units (u nknown) date) unknown) (unknown) (no (unknown) (unknown) *You have been (units (unknown) date) diagnosed with unknown) [left upper extremity deep vein thrombosis.] (unknown) (no (unknown) (unknown) [id number] (units (unkno wn) date) unknown) (unknown) (no (unknown) (unknown) 1. No pulmonary (units (unknown) date) embolism. unknown) (unknown) (no (unknown) (unknown) 06/29/22 06/29/22 (units (unknown) date) 06/29/22 unknown) Range/Units (unknown) (no (unknown) (unknown) 06/29/22 10:53 (units (unknown) date) unknown) (unknown) (no (unknown) (unknown) 06/29/22 11:00 (units (unknown) date) unknown) (unknown) (no (unknown) (unknown) 06/29/22 11:24 (units (unknown) date) unknown) (unknown) (no (unknown) (unknown) 06/29/22 11:56 (units (unknown) date) unknown) (unknown) (no (unknown) (unknown) 06/29/22 13:27 (units (unknown) date) unknown) (unknown) (no (unknown) (unknown) 06/29/22 1738 (units ( unknown) date) unknown) (unknown) (no (unknown) (unknown) 06/29/22 (units (unkno wn) date) unknown) (unknown) (no (unknown) (unknown) 10:50 06/29/22 (units (unknown) date) unknown) (unknown) (no (unknown) (unknown) 11:00 11:00 11:00 (units (unknown) date) unknown) (unknown) (no (unknown) (unknown) 12 point review (units (unknown) date) of systems is unknown) negative except for those stated above (unknown) (no (unknown) (unknown) [address] [place] [address] (units (unknown) date) unknown) (unknown) (no (unknown) (unknown) 12:38 06/29/22 (units (unknown) date) unknown) (unknown) (no (unknown) (unknown) 12:38 (units (unkno wn) date) unknown) (unknown) (no (unknown) (unknown) 13:00 06/29/22 (units (unknown) date) unknown) (unknown) (no (unknown) (unknown) 13:30 06/29/22 (units (unknown) date) unknown) (unknown) (no (unknown) (unknown) 13:30 (units (unkno wn) date) unknown) (unknown) (no (unknown) (unknown) 14:03 06/29/22 (units (unknown) date) unknown) (unknown) (no (unknown) (unknown) 14:30 (units (unkno wn) date) unknown) (unknown) (no (unknown) (unknown) 15:00 (units (unkno wn) date) unknown) (unknown) (no (unknown) (unknown) 2. No acute (units (un known) date) airspace opacity. unknown) (unknown) (no (unknown) (unknown) 3. Small focus of (units (unknown) date) pneumoperitoneum.? unknown) This is presumably postsurgical in nature.? (unknown) (no (unknown) (unknown) 30D Start) (units (unk nown) date) unknown) (unknown) (no (unknown) (unknown) 40 mg PO DAILY (units (unknown) date) unknown) (unknown) (no (unknown) (unknown) 41-year-old (units (un known) date) female nonsmoker unknown) presents with in the chief complaint of (unknown) (no (unknown) (unknown) ? (units (unkno wn) date) unknown) (unknown) (no (unknown) (unknown) ALT 81 H (<35) (units (unknown) date) IU/L unknown) (unknown) (no (unknown) (unknown) AST 53 H (14-36) (units (unknown) date) IU/L unknown) (unknown) (no (unknown) (unknown) Abdomen:? Post (units (unknown) date) cholecystectomy.? unknown) Small focus of gas under the right (unknown) (no (unknown) (unknown) Accession Number: (units (unknown) date) [id number] ?? unknown) (unknown) (no (unknown) (unknown) Acct:[id number] (units (unknown) date) unknown) (unknown) (no (unknown) (unknown) Activity (units (unkno wn) date) Restrictions/Addit unknown) ional Instructions: (unknown) (no (unknown) (unknown) Acute deep vein (units (unknown) date) thrombosis (DVT) unknown) of left upper extremity (unknown) (no (unknown) (unknown) After the (units (unkn own) date) administration of unknown) intravenous contrast, 2 mm thick sections acquired (unknown) (no (unknown) (unknown) Age/Sex: 41 / F (units (unknown) date) unknown) (unknown) (no (unknown) (unknown) Albumin 4.9 (units (un known) date) (3.5-5.0) g/dL unknown) (unknown) (no (unknown) (unknown) Albumin/Globulin (units (unknown) date) Ratio 1.0 unknown) (1.0-2.8) (unknown) (no (unknown) (unknown) Alkaline (units (unkno wn) date) Phosphatase 64 unknown) (38-126) U/L (unknown) (no (unknown) (unknown) Allergies (units (unkn own) date) unknown) (unknown) (no (unknown) (unknown) Allergy/AdvReac (units (unknown) date) Type Severity unknown) Reaction Status Date / Time (unknown) (no (unknown) (unknown) [place], [place] (units ( unknown) date) [id number] unknown) (unknown) (no (unknown) (unknown) Apixaban (units (unkno wn) date) (Apixaban 5 Mg unknown) Tablet) 10 mg PO NOW ONE (unknown) (no (unknown) (unknown) Approved by: (units (u nknown) date) Bayron Carrington M.D. unknown) on 06/29/2022 at 13:44 ? (unknown) (no (unknown) (unknown) BACK: Nontender (units (unknown) date) without deformity unknown) or crepitance. No flank tenderness. (unknown) (no (unknown) (unknown) BUN 9 (7-17) (units (u nknown) date) mg/dL unknown) (unknown) (no (unknown) (unknown) BUN/Creatinine (units (unknown) date) Ratio 10.0 (6-22) unknown) (unknown) (no (unknown) (unknown) Baso # (Auto) 0 (units (unknown) date) (0-100) /uL unknown) (unknown) (no (unknown) (unknown) Baso % (Auto) 0.3 (units (unknown) date) (0-2) % unknown) (unknown) (no (unknown) (unknown) Blood Pressure (units (unknown) date) 116/87 120/86 unknown) (unknown) (no (unknown) (unknown) Blood Pressure (units (unknown) date) 134/94 H 10// unknown) 10:50 (unknown) (no (unknown) (unknown) Blood Pressure (units (unknown) date) 134/94 H 131/86 unknown) (unknown) (no (unknown) (unknown) Blood Pressure (units (unknown) date) unknown) (unknown) (no (unknown) (unknown) Bones and chest (units (unknown) date) wall:? No unknown) suspicious bony lesions.? Ribs and thoracic spine (unknown) (no (unknown) (unknown) CARDIOVASCULAR: (units (unknown) date) Regular rate and unknown) rhythm without murmurs, gallops, or rubs. No (unknown) (no (unknown) (unknown) CARDIOVASCULAR: (units (unknown) date) See HPI unknown) (unknown) (no (unknown) (unknown) CK-MB (CK-2) < (units (unknown) date) 0.22 (<2.37) ng/mL unknown) (unknown) (no (unknown) (unknown) CK-MB (CK-2) Rel (units (unknown) date) Index 0.2 L unknown) (1.5-5.0) % (unknown) (no (unknown) (unknown) COMPARISON:? (units (u nknown) date) None. unknown) (unknown) (no (unknown) (unknown) CT Scan Report (units (unknown) date) unknown) (unknown) (no (unknown) (unknown) CT abdomen pelvis (units (unknown) date) with IV contrast.? unknown) (unknown) (no (unknown) (unknown) CT angio chest PE (units (unknown) date) protocol Stat unknown) (unknown) (no (unknown) (unknown) CT scan - chest: (units (unknown) date) unknown) (unknown) (no (unknown) (unknown) Calcium 10.2 (units (u nknown) date) (8.4-10.2) mg/dL unknown) (unknown) (no (unknown) (unknown) Carbon Dioxide 29 (units (unknown) date) (22-32) mmol/L unknown) (unknown) (no (unknown) (unknown) Chief Complaint: (units (unknown) date) Dizziness unknown) (unknown) (no (unknown) (unknown) Chloride 99 (units (un known) date) (98-107) mmol/L unknown) (unknown) (no (unknown) (unknown) Clinical (units (unkno wn) date) Impression: unknown) (unknown) (no (unknown) (unknown) Comment: Findings (units (unknown) date) were discussed unknown) with Jayden Newman at 1:42 p.m. Reports recent (unknown) (no (unknown) (unknown) Complete Blood (units (unknown) date) Count AUTO DIFF unknown) Stat (unknown) (no (unknown) (unknown) Comprehensive (units ( unknown) date) Metabolic Panel unknown) Stat (unknown) (no (unknown) (unknown) Consultation #1: (units (unknown) date) unknown) (unknown) (no (unknown) (unknown) Consultations (units ( unknown) date) unknown) (unknown) (no (unknown) (unknown) Course (units (unkno wn) date) unknown) (unknown) (no (unknown) (unknown) Creatinine 0.90 (units (unknown) date) (0.52-1.04) mg/dL unknown) (unknown) (no (unknown) (unknown) D Dimer Stat (units (u nknown) date) unknown) (unknown) (no (unknown) (unknown) D-Dimer 1251 H (units (unknown) date) (<500) ng/ml unknown) (unknown) (no (unknown) (unknown) : 1980 (units (unknown) date) Acct:[id number] unknown) (unknown) (no (unknown) (unknown) : 1980 (units (unknown) date) unknown) (unknown) (no (unknown) (unknown) Date of Service: (units (unknown) date) 06/29/22 unknown) (unknown) (no (unknown) (unknown) Departure (units (unkn own) date) unknown) (unknown) (no (unknown) (unknown) Dictated by: (units (u nknown) date) Bayron Carrington M.D. unknown) on 06/29/2022 at 13:35 ? ? (unknown) (no (unknown) (unknown) Discharge Plan (units (unknown) date) unknown) (unknown) (no (unknown) (unknown) Discontinued (units (u nknown) date) Medications unknown) (unknown) (no (unknown) (unknown) Does have some (units (unknown) date) pain with use of unknown) her left upper extremity. There is no obvious (unknown) (no (unknown) (unknown) ED Orders (units (unkn own) date) unknown) (unknown) (no (unknown) (unknown) EKG-12 Lead Stat (units (unknown) date) unknown) (unknown) (no (unknown) (unknown) ENT: Nose without (units (unknown) date) bleeding, purulent unknown) drainage. Throat without erythema, (unknown) (no (unknown) (unknown) ER Physician: (units ( unknown) date) Jayden Newman D.O. unknown) (unknown) (no (unknown) (unknown) EXTREMITIES: No (units (unknown) date) edema or joint unknown) tenderness. No erythema, swelling, warmth. (unknown) (no (unknown) (unknown) EYES: Pupils (units (u nknown) date) equal round and unknown) reactive. Extraocular motions intact. No scleral (unknown) (no (unknown) (unknown) Eliquis DVT-PE (units (unknown) date) Treat 30D Start 5 unknown) mg (74 tabs) tablets,dose pack (unknown) (no (unknown) (unknown) Emergency Report (units (unknown) date) unknown) (unknown) (no (unknown) (unknown) Eos # (Auto) 300 (units (unknown) date) (0-450) /uL unknown) (unknown) (no (unknown) (unknown) Eos % (Auto) 2.4 (units (unknown) date) (2-4) % unknown) (unknown) (no (unknown) (unknown) Esophagus is (units (u nknown) date) unknown) (unknown) (no (unknown) (unknown) Estimated GFR > (units (unknown) date) 60 (>60) mL/min unknown) (unknown) (no (unknown) (unknown) Exam Narrative: (units (unknown) date) unknown) (unknown) (no (unknown) (unknown) Exam (units (unkno wn) date) unknown) (unknown) (no (unknown) (unknown) FINDINGS:? (units (unk nown) date) unknown) (unknown) (no (unknown) (unknown) For radiation (units ( unknown) date) dose reduction, unknown) the following was used:? automated exposure (unknown) (no (unknown) (unknown) GASTROINTESTINAL: (units (unknown) date) Abdomen soft, unknown) non-tender, nondistended. (unknown) (no (unknown) (unknown) GASTROINTESTINAL: (units (unknown) date) Denies nausea, unknown) vomiting, abdominal pain, diarrhea, (unknown) (no (unknown) (unknown) GENERAL: 41 [] (units (unknown) date) year old patient unknown) appears stated age. Well-developed patient, in (unknown) (no (unknown) (unknown) GENERAL: Denies (units (unknown) date) chills, fatigue, unknown) malaise, fever, sweats. (unknown) (no (unknown) (unknown) : Denies (units (unk nown) date) dysuria, unknown) frequency, incontinence, hematuria, urinary retention. (unknown) (no (unknown) (unknown) General (units (unkno wn) date) unknown) (unknown) (no (unknown) (unknown) Globulin 4.7 H (units (unknown) date) (1.7-4.1) g/dL unknown) (unknown) (no (unknown) (unknown) Glucose 102 H (units ( unknown) date) (70-100) mg/dL unknown) (unknown) (no (unknown) (unknown) HEAD: Atraumatic. (units (unknown) date) Normocephalic. unknown) (unknown) (no (unknown) (unknown) HEENT: Denies (units ( unknown) date) sinus pain, ear unknown) pain, sore throat, difficulty swallowing, (unknown) (no (unknown) (unknown) HPI - Dizziness (units (unknown) date) unknown) (unknown) (no (unknown) (unknown) HPI Narrative: (units (unknown) date) unknown) (unknown) (no (unknown) (unknown) Hct 44.5 (36-46) (units (unknown) date) % unknown) (unknown) (no (unknown) (unknown) Hgb 15.2 (units (unkno wn) date) (12.0-16.0) g/dL unknown) (unknown) (no (unknown) (unknown) History of (units (unk nown) date) Present Illness unknown) (unknown) (no (unknown) (unknown) Home Medications (units (unknown) date) unknown) (unknown) (no (unknown) (unknown) IMPRESSION:? (units (u nknown) date) unknown) (unknown) (no (unknown) (unknown) INDICATIONS:? (units ( unknown) date) SOB, critical unknown) dimer, chest pain, recent surgery, PE? (unknown) (no (unknown) (unknown) Image quality:? (units (unknown) date) Excellent.? unknown) (unknown) (no (unknown) (unknown) Imaging Data (units (u nknown) date) unknown) (unknown) (no (unknown) (unknown) Initial Vital (units ( unknown) date) Signs unknown) (unknown) (no (unknown) (unknown) Initial Vital (units ( unknown) date) Signs: unknown) (unknown) (no (unknown) (unknown) Instructions: (units ( unknown) date) Deep Vein unknown) Thrombosis (unknown) (no (unknown) (unknown) [facility] (units (unknown) date) [address] [place] [address] unknown) [place] [address] (unknown) (no (unknown) (unknown) [facility] (units (unknown) date) unknown) (unknown) (no (unknown) (unknown) Lab Data (units (unkno wn) date) unknown) (unknown) (no (unknown) (unknown) Lab Results (units (un known) date) unknown) (unknown) (no (unknown) (unknown) Labs: (units (unkno wn) date) unknown) (unknown) (no (unknown) (unknown) Lipase 47 (units (unkn own) date) (23-300) U/L unknown) (unknown) (no (unknown) (unknown) Lipase Stat (units (un known) date) unknown) (unknown) (no (unknown) (unknown) Loc: ED (units (unkno wn) date) unknown) (unknown) (no (unknown) (unknown) Lungs and (units (unkn own) date) pleura:? Lungs are unknown) clear.? Left calcified granuloma.? No pleural (unknown) (no (unknown) (unknown) Lymph # (Auto) (units (unknown) date) 1900 ([id number]) unknown) /uL (unknown) (no (unknown) (unknown) Lymph % (Auto) (units (unknown) date) 17.6 L (25-40) % unknown) (unknown) (no (unknown) (unknown) MCH 30.3 (26-34) (units (unknown) date) PG unknown) (unknown) (no (unknown) (unknown) MCHC 34.1 (30-36) (units (unknown) date) % unknown) (unknown) (no (unknown) (unknown) MCV 88.8 (80-100) (units (unknown) date) fL unknown) (unknown) (no (unknown) (unknown) MDM - Dizziness (units (unknown) date) unknown) (unknown) (no (unknown) (unknown) MR#: [id number] (units (unknown) date) unknown) (unknown) (no (unknown) (unknown) MUSCULOSKELETAL: (units (unknown) date) See HPI unknown) (unknown) (no (unknown) (unknown) Magnesium 2.1 (units ( unknown) date) (1.6-2.3) mg/dL unknown) (unknown) (no (unknown) (unknown) Magnesium Stat (units (unknown) date) unknown) (unknown) (no (unknown) (unknown) Mediastinum:? (units ( unknown) date) Heart size is unknown) normal, without pericardial effusion.? No (unknown) (no (unknown) (unknown) Medical History (units (unknown) date) (Reviewed 06/29/22 unknown) @ 15:24 by Jayden Newman DO) (unknown) (no (unknown) (unknown) Medication (units (unk nown) date) Instructions unknown) Recorded Confirmed (unknown) (no (unknown) (unknown) Medication (units (unk nown) date) Instructions unknown) Recorded (unknown) (no (unknown) (unknown) Mode of arrival: (units (unknown) date) Ambulatory unknown) (unknown) (no (unknown) (unknown) [place] # (Auto) 400 (units (unknown) date) (0-900) /uL unknown) (unknown) (no (unknown) (unknown) [place] % (Auto) 3.8 (units (unknown) date) (3-14) % unknown) (unknown) (no (unknown) (unknown) NECK: Trachea (units ( unknown) date) midline. Non unknown) tender (unknown) (no (unknown) (unknown) NEURO: AOx3. (units (u nknown) date) unknown) (unknown) (no (unknown) (unknown) NEUROLOGIC: (units (un known) date) Denies weakness, unknown) headache, numbness, change in speech, confusion, (unknown) (no (unknown) (unknown) (normal (units (u nknown) date) spontaneous unknown) vaginal delivery) (unknown) (no (unknown) (unknown) Narrative (units (unkn own) date) unknown) (unknown) (no (unknown) (unknown) Narrative: (units (unk nown) date) unknown) (unknown) (no (unknown) (unknown) Neut # (Auto) (units ( unknown) date) 8300 H ([id number]) unknown) /uL (unknown) (no (unknown) (unknown) Neut % (Auto) (units ( unknown) date) 75.9 H (50-75) % unknown) (unknown) (no (unknown) (unknown) New (units (unkno wn) date) unknown) (unknown) (no (unknown) (unknown) No Action (units (unkn own) date) unknown) (unknown) (no (unknown) (unknown) Ordered: (units (unkno wn) date) unknown) (unknown) (no (unknown) (unknown) Ordering (units (unkno wn) date) Provider: unknown) Jayden Newman D.O. (unknown) (no (unknown) (unknown) Orders (units (unkno wn) date) unknown) (unknown) (no (unknown) (unknown) Oxygen Delivery (units (unknown) date) Method 06/29/22 unknown) 10:50 (unknown) (no (unknown) (unknown) Oxygen Delivery (units (unknown) date) Method Room Air unknown) (unknown) (no (unknown) (unknown) Oxygen Delivery (units (unknown) date) Method unknown) (unknown) (no (unknown) (unknown) PROCEDURE:? CT (units (unknown) date) ANGIO CHEST PE unknown) PROTOCOL (unknown) (no (unknown) (unknown) PSYCHIATRIC: No (units (unknown) date) concerning unknown) psychosocial issues. (unknown) (no (unknown) (unknown) Patient (units (unkno wn) date) Disposition: Home unknown) (unknown) (no (unknown) (unknown) Patient History (units (unknown) date) unknown) (unknown) (no (unknown) (unknown) Patient: (units (unkno wn) date) Burton Diamond unknown) MR#: [id number] (unknown) (no (unknown) (unknown) Patient: (units (unkno wn) date) Burton Diamond N unknown) (unknown) (no (unknown) (unknown) Plt Count 299 (units ( unknown) date) (150-400) X103/uL unknown) (unknown) (no (unknown) (unknown) Potassium 4.3 (units ( unknown) date) (3.4-5.1) mmol/L unknown) (unknown) (no (unknown) (unknown) Prescriptions: (units (unknown) date) unknown) (unknown) (no (unknown) (unknown) Previous Rx's (units ( unknown) date) unknown) (unknown) (no (unknown) (unknown) Previous (units (unknown) date) section unknown) (unknown) (no (unknown) (unknown) Procedure: CT (units ( unknown) date) angio chest PE unknown) protocol (unknown) (no (unknown) (unknown) Provider,Eduin (units (unknown) date) KISHA [Primary Care unknown) Provider] (unknown) (no (unknown) (unknown) Pulmonary (units (unkn own) date) arteries:? unknown) Pulmonary arteries are normal in size, and demonstrate no (unknown) (no (unknown) (unknown) Pulse Oximetry 99 (units (unknown) date) 06/29/22 10:50 unknown) (unknown) (no (unknown) (unknown) Pulse Oximetry 99 (units (unknown) date) 91 98 unknown) (unknown) (no (unknown) (unknown) Pulse Oximetry 99 (units (unknown) date) 99 unknown) (unknown) (no (unknown) (unknown) Pulse Oximetry 99 (units (unknown) date) unknown) (unknown) (no (unknown) (unknown) Pulse Rate 73 (units ( unknown) date) unknown) (unknown) (no (unknown) (unknown) Pulse Rate 75 68 (units (unknown) date) 77 unknown) (unknown) (no (unknown) (unknown) Pulse Rate 84 (units ( unknown) date) unknown) (unknown) (no (unknown) (unknown) Pulse Rate 85 (units ( unknown) date) 06/29/22 10:50 unknown) (unknown) (no (unknown) (unknown) Pulse Rate 85 77 (units (unknown) date) unknown) (unknown) (no (unknown) (unknown) RBC 5.01 (units (unkno wn) date) (4.0-5.2) X106/uL unknown) (unknown) (no (unknown) (unknown) RDW 13.4 (units (unkno wn) date) (11.6-14.8) % unknown) (unknown) (no (unknown) (unknown) RESPIRATORY: Clear (units (unknown) date) to auscultation. unknown) Breath sounds equal bilaterally. No wheezes, (unknown) (no (unknown) (unknown) RESPIRATORY: (units (u nknown) date) Denies dyspnea, unknown) cough, wheezing, hemoptysis, sputum. (unknown) (no (unknown) (unknown) Radiologist's (units ( unknown) date) Impression: unknown) (unknown) (no (unknown) (unknown) Recommend (units (unkn own) date) clinical unknown) correlation.? If clinically indicated consider further (unknown) (no (unknown) (unknown) Referrals: (units (unk nown) date) unknown) (unknown) (no (unknown) (unknown) Related Data (units (u nknown) date) unknown) (unknown) (no (unknown) (unknown) Respiratory Rate (units (unknown) date) 15 06/29/22 10:50 unknown) (unknown) (no (unknown) (unknown) Respiratory Rate (units (unknown) date) 15 unknown) (unknown) (no (unknown) (unknown) Respiratory Rate (units (unknown) date) unknown) (unknown) (no (unknown) (unknown) Result diagrams: (units (unknown) date) unknown) (unknown) (no (unknown) (unknown) Review of Systems (units (unknown) date) unknown) (unknown) (no (unknown) (unknown) Rx Instructions: (units (unknown) date) unknown) (unknown) (no (unknown) (unknown) S/P laparoscopic (units (unknown) date) hysterectomy unknown) (unknown) (no (unknown) (unknown) SKIN: Denies (units (u nknown) date) rash, skin unknown) lesions, or other (unknown) (no (unknown) (unknown) SKIN: No rash or (units (unknown) date) erythema of unknown) visible areas (unknown) (no (unknown) (unknown) See Rx (units (unkno wn) date) Instructions unknown) .ROUTE .COMPLEX Qty: 74 0RF (unknown) (no (unknown) (unknown) Sensation, muscle (units (unknown) date) strength and unknown) pulses intact at wrist and fingers. Use of arm (unknown) (no (unknown) (unknown) Signed By: (units (unk nown) date) unknown) (unknown) (no (unknown) (unknown) Signed (units (unkno wn) date) unknown) (unknown) (no (unknown) (unknown) Smoking Status: (units (unknown) date) Never smoker unknown) (unknown) (no (unknown) (unknown) Social History (units (unknown) date) (Reviewed 06/29/22 unknown) @ 15:24 by Jayden Newman DO) (unknown) (no (unknown) (unknown) Sodium 143 (units (unk nown) date) (137-145) mmol/L unknown) (unknown) (no (unknown) (unknown) Source: patient (units (unknown) date) unknown) (unknown) (no (unknown) (unknown) Stated Complaint: (units (unknown) date) surgery friday, unknown) lt arm numb, ligheaded, BP up (unknown) (no (unknown) (unknown) Stop: 06/29/22 (units (unknown) date) 17:28 unknown) (unknown) (no (unknown) (unknown) Substance Use (units ( unknown) date) Type: does not use unknown) (unknown) (no (unknown) (unknown) Surgical History (units (unknown) date) (Reviewed 06/29/22 unknown) @ 15:24 by Jayden Newman DO) (unknown) (no (unknown) (unknown) TECHNIQUE:? (units (un known) date) unknown) (unknown) (no (unknown) (unknown) Temperature 97.0 (units (unknown) date) F L 06/29/22 10:50 unknown) (unknown) (no (unknown) (unknown) Temperature 97.0 (units (unknown) date) F L unknown) (unknown) (no (unknown) (unknown) Temperature (units (un known) date) unknown) (unknown) (no (unknown) (unknown) Time Seen by (units (u nknown) date) Provider: 06/29/22 unknown) 11:51 (unknown) (no (unknown) (unknown) Total Bilirubin (units (unknown) date) 0.8 (0.2-1.3) unknown) mg/dL (unknown) (no (unknown) (unknown) Total Creatine (units (unknown) date) Kinase 142 H unknown) (30-135) U/L (unknown) (no (unknown) (unknown) Total Protein 9.6 (units (unknown) date) H (6.3-8.2) g/dL unknown) (unknown) (no (unknown) (unknown) Troponin + CK (units ( unknown) date) Cardiac Panel Stat unknown) (unknown) (no (unknown) (unknown) Troponin I < (units (u nknown) date) 0.012 (0.01-0.034) unknown) ng/mL (unknown) (no (unknown) (unknown) US periph venous (units (unknown) date) up extrem lt Stat unknown) (unknown) (no (unknown) (unknown) Vital Signs - 8 (units (unknown) date) hr unknown) (unknown) (no (unknown) (unknown) Vital Signs (units (un known) date) unknown) (unknown) (no (unknown) (unknown) Vital signs: (units (u nknown) date) unknown) (unknown) (no (unknown) (unknown) WBC 11.0 (units (unkno wn) date) (4.5-11.0) X103/uL unknown) (unknown) (no (unknown) (unknown) XR chest 1V Stat (units (unknown) date) unknown) (unknown) (no (unknown) (unknown) [ ] New (units (unkno wn) date) medication written unknown) as a paper prescription (unknown) (no (unknown) (unknown) [ ] No new (units (unk nown) date) medications given unknown) (unknown) (no (unknown) (unknown) [ x] New (units (unkno wn) date) medication unknown) prescriptions sent to your pharmacy: [[facility]] (unknown) (no (unknown) (unknown) [Embedded Image (units (unknown) date) Not Available] unknown) (unknown) (no (unknown) (unknown) a dose pack (units (un known) date) (Eliquis DVT-PE unknown) Treat #74 ea (unknown) (no (unknown) (unknown) adenopathy.? (units (u nknown) date) unknown) (unknown) (no (unknown) (unknown) adjustment of mA (units (unknown) date) and/or kV unknown) according to patient size.? (unknown) (no (unknown) (unknown) alcohol intake (units (unknown) date) frequency: unknown) holidays/special occasions only (unknown) (no (unknown) (unknown) apixaban 5 mg (74 (units (unknown) date) tabs) tablets in unknown) See Rx Instructions PO .COMPLEX 06/29/22 (unknown) (no (unknown) (unknown) appear intact (units ( unknown) date) unknown) (unknown) (no (unknown) (unknown) appointment. Let (units (unknown) date) them know you were unknown) seen in the Emergency Department and that we (unknown) (no (unknown) (unknown) ask that you be (units (unknown) date) seen in follow up. unknown) We will electronically transmit a record of (unknown) (no (unknown) (unknown) concerning (units (unk nown) date) symptoms unknown) (unknown) (no (unknown) (unknown) constipation, (units ( unknown) date) melena. unknown) (unknown) (no (unknown) (unknown) control, (units (unkno wn) date) unknown) (unknown) (no (unknown) (unknown) denies fever or (units (unknown) date) chills. She denies unknown) runny nose, sore throat. She has no nausea, (unknown) (no (unknown) (unknown) discussed with on (units (unknown) date) call provider for unknown) Dr. Chavez at [facility] to (unknown) (no (unknown) (unknown) dizziness. (units (unk nown) date) unknown) (unknown) (no (unknown) (unknown) effusions or (units (u nknown) date) unknown) (unknown) (no (unknown) (unknown) evaluation with (units (unknown) date) unknown) (unknown) (no (unknown) (unknown) exacerbate some (units (unknown) date) of her pain unknown) (unknown) (no (unknown) (unknown) from the (units (unkno wn) date) unknown) (unknown) (no (unknown) (unknown) hemidiaphragm, (units (unknown) date) unknown) (unknown) (no (unknown) (unknown) here for (units (unkno wn) date) evaluation of unknown) possible pulmonary embolism (unknown) (no (unknown) (unknown) hilar (units (unkno wn) date) adenopathy.? unknown) Thoracic aorta is normal in caliber and enhancement.? (unknown) (no (unknown) (unknown) ibuprofen Allergy (units (unknown) date) Verified 06/29/22 unknown) 10:50 (unknown) (no (unknown) (unknown) icterus. No (units (un known) date) injection or unknown) drainage. (unknown) (no (unknown) (unknown) intensity (units (unkn own) date) unknown) (unknown) (no (unknown) (unknown) intraluminal (units (u nknown) date) filling defects to unknown) suggest central pulmonary embolism.? (unknown) (no (unknown) (unknown) mediastinal or (units (unknown) date) unknown) (unknown) (no (unknown) (unknown) mild distress. (units (unknown) date) unknown) (unknown) (no (unknown) (unknown) normal in (units (unkn own) date) caliber, without unknown) hiatal hernia.? (unknown) (no (unknown) (unknown) on last Friday. (units (unknown) date) unknown) (unknown) (no (unknown) (unknown) orally per (units (unk nown) date) package directions unknown) (unknown) (no (unknown) (unknown) pain on palpation (units (unknown) date) unknown) (unknown) (no (unknown) (unknown) pantoprazole 40 (units (unknown) date) mg tablet,delayed unknown) 40 mg PO DAILY 12/10/21 12/10/21 (unknown) (no (unknown) (unknown) pantoprazole 40 (units (unknown) date) mg tablet,delayed unknown) release (DR/EC) (unknown) (no (unknown) (unknown) pneumothorax.? (units (unknown) date) Central and unknown) peripheral airways are patent.? (unknown) (no (unknown) (unknown) projection (MIP) (units (unknown) date) coronal and unknown) sagittal reformats were then acquired through the (unknown) (no (unknown) (unknown) pulmonary apices (units (unknown) date) to the posterior unknown) costophrenic angles.? 3-dimensional maximum (unknown) (no (unknown) (unknown) rales, or (units (unkn own) date) rhonchi. unknown) (unknown) (no (unknown) (unknown) relay US (units (unkno wn) date) findings. They are unknown) aware and in agreement with the plan (unknown) (no (unknown) (unknown) release (units (unkno wn) date) unknown) (unknown) (no (unknown) (unknown) seizures, (units (unkn own) date) incoordination. unknown) (unknown) (no (unknown) (unknown) some dizziness (units (unknown) date) over the past few unknown) days. She denies any cough or chest pain. She (unknown) (no (unknown) (unknown) some left arm (units ( unknown) date) discomfort and unknown) heaviness with fatigue, shortness of breath and (unknown) (no (unknown) (unknown) surgery (units (unkno wn) date) unknown) (unknown) (no (unknown) (unknown) swelling, redness (units (unknown) date) or weakness. She unknown) states that when hospitalized her IV was in (unknown) (no (unknown) (unknown) the opposite arm. (units (unknown) date) She had spoken unknown) with her primary care provider's and was sent (unknown) (no (unknown) (unknown) thorax.? (units (unkno wn) date) unknown) (unknown) (no (unknown) (unknown) throughout.? (units (u nknown) date) Thyroid gland is unknown) unremarkable.? No axillary or supraclavicular (unknown) (no (unknown) (unknown) today's note if (units (unknown) date) your PCP is in our unknown) system (unknown) (no (unknown) (unknown) tonsillar (units (unkn own) date) hypertrophy or unknown) exudate. Airway patent. (unknown) (no (unknown) (unknown) vomiting or (units (un known) date) diarrhea. She unknown) denies worsening pain with deep breath or exertion. Social History No information. Vital Signs No information.
[2022-07-14 15:58] LABS: BASOPHILS # (AUTO) 0.1 10^3/uL (0.0-0.1); BASOPHILS % (AUTO) 0.7 %; EOSINOPHILS # (AUTO) 0.2 10^3/uL (0.0-0.7); EOSINOPHILS % (AUTO) 1.5 %; HCT - HEMATOCRIT 40.7 % (37.0-47.0); HGB - HEMOGLOBIN 13.2 g/dL (12.0-16.0); LYMPHOCYTES # (AUTO) 3.6 10^3/uL (1.5-3.5); LYMPHOCYTES % (AUTO) 34.6 %; MEAN CORPUSCULAR HEMOGLOBIN 29.3 pg (27.0-31.0); MEAN CORPUSCULAR HGB CONC 32.4 g/dL (32.0-36.0); MEAN CORPUSCULAR VOLUME 90.2 fL (81.0-99.0); MEAN PLATELET VOLUME 9.6 fL (7.9-10.8); MONOCYTES # (AUTO) 0.7 10^3/uL (0.0-1.0); MONOCYTES % (AUTO) 6.8 %; NEUTROPHILS # (AUTO) 5.8 10^3/uL (1.5-6.6); NEUTROPHILS % (AUTO) 56.2 %; PLT - PLATELET COUNT 312 10^3/uL (130-450); RED BLOOD COUNT 4.51 10^6/uL (4.20-5.40); RED CELL DISTRIBUTION WIDTH 13.2 % (12.0-15.0); WHITE BLOOD COUNT 10.3 x10^3/uL (4.8-10.8)
--- NOTE | 2022-07-14 16:07 | XRAY Report ---
PROCEDURE: Chest 1 View X-Ray INDICATIONS: Chest pain TECHNIQUE: One view of the chest was acquired. COMPARISON: 08/27/2019 FINDINGS: Surgical changes and devices: None. Lungs and pleura: No pleural effusions or pneumothorax. Lungs are clear. Mediastinum: Mediastinal contours appear normal. Heart size is normal. Bones and chest wall: No suspicious bony lesions. Overlying soft tissues appear unremarkable. IMPRESSION: No acute radiographic abnormality. Reviewed by: Willian Wasserman MD on 07/14/2022 4:05 PM [facility] Approved by: Willian Wasserman MD on 07/14/2022 4:05 PM [facility] Station ID: [id number]
[2022-07-14 16:26] LABS: ALBUMIN 4.2 g/dL (3.2-5.5); ALBUMIN/GLOBULIN RATIO 1.1 (1.0-2.2); BILIRUBIN,TOTAL 0.6 mg/dL (0.2-1.0); CALCIUM 9.7 mg/dL (8.5-10.3); CREATININE 0.9 mg/dL (0.4-1.0); TOTAL PROTEIN 7.9 g/dL (6.7-8.2)
--- NOTE | 2022-07-14 16:59 | ED Physician Documentation ---
History of Present Illness - Stated complaint Stated Complaint: CHEST HEAVY,LIGHT HEAD - Chief complaint Chief Complaint: Cardiac - Additonal information Additional information: 41-year-old female presents to the emergency department for evaluation of 24 hours chest pain, pressure and heaviness. She is concerned she could have a DVT. She reports that she underwent a left oophorectomy on 25 June. On 28 June she developed left arm pain and mild swelling and was seen at [facility] while there she was diagnosed with a DVT in the left arm. She was started on Eliquis and is now transition to 5 mg twice daily. Over the last 24 hours she has begun to have some chest pressure and heaviness. Also reporting bilateral calf pain without leg swelling. No previous history of DVT or cancer. No family history of factor V Leyden deficiency or other hypercoagulable states. Patient is -Al[place]ian Review of Systems Constitutional: denies: Fever, Chills Throat: reports: Reviewed and negative Cardiac: reports: Chest pain / pressure, Calf pain. denies: Palpitations, Pedal edema Respiratory: reports: Reviewed and negative GI: reports: Reviewed and negative : reports: Reviewed and negative PD PAST MEDICAL HISTORY - Past Medical History Cardiovascular: None Respiratory: None Neuro: None Endocrine/Autoimmune: None GI: GERD MATERIALS MANAGER: None : Other HEENT: None Psych: None Musculoskeletal: None Derm: None - Past Surgical History Past Surgical History: Yes General: Cholecystectomy /MATERIALS MANAGER: section, Hysterectomy - Present Medications Home Medications: Ambulatory Orders Medication Instructions Recorded Confirmed Aspirin/Acetaminophen/Caffeine 1 each PO .FREQ 07/31/17 07/31/17 [Excedrin Migraine Caplet] HYDROcod/ACETAM 5/325 [Reliance 5/325] 1 tab PO Q6H PRN #15 tablet 07/31/17 Ondansetron Odt [Zofran] 4 mg TL Q6H PRN #15 tablet 07/31/17 dexAMETHasone [Decadron] 4 mg PO DAILY #5 tablet 07/31/17 Lorazepam [Ativan] 1 mg PO TID PRN #10 tablet 04/15/19 Lidocaine Viscous 2% [Xylocaine 5 ml PO Q4H PRN #100 ml 08/27/19 Viscous 2%] Sucralfate [Carafate] 1 gm PO TID #30 tablet 08/27/19 Cyclobenzaprine [Flexeril] 10 mg PO TID PRN #20 tablet 12/23/20 Cefpodoxime Proxetil [Vantin] 100 mg PO Q12H #14 tablet 07/14/22 - Allergies Allergies/Adverse Reactions: Allergies Allergy/AdvReac Type Severity Reaction Status Date / Time ibuprofen Allergy Unknown Verified 07/14/22 15:38 - Social History Does the pt smoke?: No Smoking Status: Never smoker Does the pt drink ETOH?: No Does the pt have substance abuse?: No - Immunizations Immunizations are current?: Yes - POLST Patient has POLST: No PD ED PE NORMAL - General General: Alert and oriented X 3, No acute distress, Well developed/nourished - HEENT HEENT: Atraumatic, Moist mucous membranes - Neck Neck: Supple, no meningeal sign, No adenopathy - Cardiac Cardiac: RRR, No murmur - Respiratory Respiratory: No respiratory distress, Clear bilaterally - Abdomen Abdomen: Normal bowel sounds, Soft - Back Back: No CVA TTP - Derm Derm: Normal color, Warm and dry, No rash - Extremities Extremities: No deformity, No tenderness to palpate, Normal ROM s pain - Neuro Neuro: Alert and oriented X 3, dependency program director 2-12 intact Eye Opening: Spontaneous Motor: Localizes to Pain Verbal: Oriented GCS Score: 14 Results - Vitals Vitals: Vital Signs - 24 hr 07/14/22 07/14/22 07/14/22 15:33 16:08 16:30 Temperature 36.6 C Heart Rate 74 63 68 Respiratory 16 12 12 Rate Blood Pressure 135/94 H 132/78 H 120/84 H O2 Saturation 100 99 100 07/14/22 07/14/22 17:00 18:00 Temperature Heart Rate 73 68 Respiratory 21 19 Rate Blood Pressure 116/88 H 122/70 O2 Saturation 98 98 Oxygen O2 Source Room air - EKG (time done) 1541 Rate: Rate (enter#) (78) Rhythm: NSR [place]: Normal Intervals: Normal [place] QRS: Normal Ischemia: Normal ST segments Compare to prior EKG: Old EKG unavailable Computer interpretation: Agree with computer - Labs Labs: Laboratory Tests 07/14/22 07/14/22 07/14/22 15:51 15:51 15:51 WBC 10.3 RBC 4.51 Hgb 13.2 Hct 40.7 MCV 90.2 MCH 29.3 MCHC 32.4 RDW 13.2 Plt Count 312 MPV 9.6 Neut # (Auto) 5.8 Lymph # (Auto) 3.6 H [place] # (Auto) 0.7 Eos # (Auto) 0.2 Baso # (Auto) 0.1 Absolute Nucleated RBC 0.00 Nucleated RBC % 0.0 Sodium 138 Potassium 4.0 Chloride 102 Carbon Dioxide 27 Anion Gap 9.0 BUN 10 Creatinine 0.9 Estimated GFR (MDRD) 83 L Glucose 97 Calcium 9.7 Total Bilirubin 0.6 AST 19 ALT 25 Alkaline Phosphatase 41 L Troponin I High Sens 2.8 Total Protein 7.9 Albumin 4.2 Globulin 3.7 Albumin/Globulin Ratio 1.1 Lipase 28 Urine Color Urine Clarity Urine pH Ur Specific [place] Urine Protein Urine Glucose (UA) Urine Ketones Urine Occult Blood Urine Nitrite Urine Bilirubin Urine Urobilinogen Ur Leukocyte Esterase Urine RBC Urine WBC Ur Squamous Epith Cells Urine Bacteria Ur Microscopic Review Urine Culture Comments Urine HCG, Qual 07/14/22 07/14/22 16:55 16:55 WBC RBC Hgb Hct MCV MCH MCHC RDW Plt Count MPV Neut # (Auto) Lymph # (Auto) [place] # (Auto) Eos # (Auto) Baso # (Auto) Absolute Nucleated RBC Nucleated RBC % Sodium Potassium Chloride Carbon Dioxide Anion Gap BUN Creatinine Estimated GFR (MDRD) Glucose Calcium Total Bilirubin AST ALT Alkaline Phosphatase Troponin I High Sens Total Protein Albumin Globulin Albumin/Globulin Ratio Lipase Urine Color YELLOW Urine Clarity SL. CLOUDY Urine pH 6.0 Ur Specific [place] <=1.005 Urine Protein NEGATIVE Urine Glucose (UA) NEGATIVE Urine Ketones NEGATIVE Urine Occult Blood NEGATIVE Urine Nitrite NEGATIVE Urine Bilirubin NEGATIVE Urine Urobilinogen 0.2 (NORMAL) Ur Leukocyte Esterase SMALL H Urine RBC 0-5 Urine WBC 6-10 H Ur Squamous Epith Cells FEW Squamous Urine Bacteria Rare Ur Microscopic Review INDICATED Urine Culture Comments INDICATED Urine HCG, Qual NEGATIVE - Rads (name of study) cxr Radiology: Final report received (No acute cardiopulmonary abnormality) bilateral US DVT Radiology: Final report received (Negative for deep vein thrombosis) CT PE Radiology: Final report received (No acute pulmonary embolism or acute abnormality in the chest) PD MEDICAL DECISION MAKING - ED course Complexity details: reviewed results, re-evaluated patient, considered differential, d/w patient ED course: 41-year-old female presents emergency department for evaluation of chest tightness and pressure. She underwent a left oophorectomy on 25 June and subsequently developed a left upper arm DVT on 28 June. She was seen at [facility] and was started on Eliquis. She also reports dysuria urgency and frequency for the last few days. 9 here in the emergency department her CBC and electrolytes did not show any worrisome findings. Her urine is consistent with infection. She will be started on Vantin. With a history of the DVT we did elect to do a CT pulmonary angiogram to rule out a PE. Reassuringly it is negative. Patient had also reported pain in both her lower calves. Ultrasound DVT study was negative. At this time patient is stable for discharge home. She is advised to continue the Eliquis and follow-up with primary care provider. With a history of a provoked DVT should she is likely to benefit from referral to hematology oncology for longer-term evaluation and monitoring. Departure - Departure Disposition: Home, Self Care Clinical Impression: Chest tightness Deep vein thrombosis (DVT) of left upper extremity Qualifiers: Affected thrombotic vein of extremity: unspecified vein of extremity Chronicity: acute Qualified Code(s): I82.622 - Acute embolism and thrombosis of deep veins of left upper extremity Acute cystitis Qualifiers: Hematuria presence: without hematuria Qualified Code(s): N30.00 - Acute cystitis without hematuria Condition: Stable Record reviewed to determine appropriate education?: Yes Prescriptions: Cefpodoxime Proxetil [Vantin] 100 mg PO Q12H #14 tablet Comments: Sanjana you came to the emergency department today because you began to have some chest tightness and pressure. You unfortunately were diagnosed with a left upper arm DVT on 28 June after you had a left nephrectomy on 25 June. You are already on Eliquis. You reported some pain in both your calves as well as some pain with urination. You do have a urinary tract infection. Please fill the prescription for the Vantin and begin taking twice daily for the next 7 days. We did do a DVT study on both your legs and no deep vein thrombosis is seen. We did do a pulmonary angiogram study of your lungs. No pulmonary embolus is seen. Here in the emergency department your CBC and electrolytes were otherwise normal. It is important that you discuss this ED visit with your primary care doctor. Continue to take the Eliquis as you are already taking. Your primary doctor should make a referral for you to a process technician/oncologist to discuss long-term anticoagulation therapy and discussed risk factors for development of blood clot in the future.
[2022-07-14 17:16] LABS: HCG UR QUAL NEGATIVE
[2022-07-14] MEDS ORDERED: iohexoL-300 100 ML VIAL ONE (17:23)
[2022-07-14 17:32] LABS: BILIRUBIN,URINE NEGATIVE (NEGATIVE); GLUCOSE, URINE (UA) NEGATIVE (NEGATIVE); KETONES,URINE (UA) NEGATIVE (NEGATIVE); LEUKOCYTE ESTERASE, URINE SMALL (NEGATIVE); NITRITE,URINE NEGATIVE (NEGATIVE); OCCULT BLOOD,URINE NEGATIVE (NEGATIVE); PROTEIN,URINE NEGATIVE (NEGATIVE); UROBILINOGEN,URINE 0.2 (NORMAL) E.U./dL (NORMAL)
[2022-07-14] MEDS ORDERED: iohexoL-300 100 ML VIAL IVP ONE (17:50)
--- NOTE | 2022-07-14 18:01 | CT Report ---
PROCEDURE: ANGIO CHEST W/WO INDICATIONS: recent left arm dvt; ? PE CONTRAST: 80ml omni 300 TECHNIQUE: After the administration of intravenous contrast, 2 mm axial images were acquired from the pulmonary apices to the posterior costophrenic angles during the arterial phase. In addition, 1 mm lung kernel and 5 mm soft tissue kernel reconstructions were performed. 3-dimensional coronal oblique maximum int ensity projection (MIP) reformats, 8 mm axial MIP, and 5 mm coronal and sagittal MPR reformats were t hen performed through the thorax. For radiation dose reduction, the following was used: automated exp osure control, adjustment of mA and/or kV according to patient size. COMPARISON: None FINDINGS: Image quality: Excellent Lungs and pleura: No pleural effusion or consolidation. Small calcified granulomas. Mediastinum, heart, and esophagus: No pulmonary embolism. Aorta is not opacified with contrast. Heart size is normal. No pathologic adenopathy by size criteria. Chest wall and thyroid: Unremarkable. No actionable thyroid nodules. Upper abdomen: There is reflux of contrast into the hepatic veins abdomen is unremarkable overall. Bones: No acute or suspicious osseous abnormality. IMPRESSION: No acute pulmonary embolism or other acute abnormality in chest. Reviewed by: Willian Wasserman MD on 07/14/2022 6:00 PM PST Approved by: Willian Wasserman MD on 07/14/2022 6:00 PM PST Station ID: [id number]
[2022-07-14 18:15] LABS: CLARITY,URINE SL. CLOUDY (CLEAR)
[2022-07-14 18:16] LABS: BACTERIA,URINE Rare /HPF (None Seen); RBC,URINE 0-5 /HPF (0-5); SQUAMOUS EPITHELIAL CELL,UR FEW Squamous (<= Few)
--- NOTE | 2022-07-14 18:34 | Ultrasound Report ---
PROCEDURE: Duplex Ext Veins Bilateral INDICATIONS: MELANIE ORDAZ TECHNIQUE: Real-time imaging, as well as color and pulse Doppler interrogation, were performed of the deep veins of both legs from the inguinal ligament to the popliteal fossa. COMPARISON: None FINDINGS: The deep veins are normally compressible, and free of intraluminal thrombus. Color and pu lse Doppler demonstrate normal phasic intravascular flow. There is normal augmentation response to d istal compression maneuver. IMPRESSION: Negative examination for deep venous thrombosis. Reviewed by: Willian Wasserman MD on 07/14/2022 6:33 PM PST Approved by: Willian Wasserman MD on 07/14/2022 6:33 PM PST Station ID: [id number]
[2022-07-14 18:35] VITALS: BP 115/90
== END 2022-07-14 18:47 | disposition home or self-care (01) ==
LOC: ED 15:17
DX: R07.89 Other chest pain (principal); I82.622 Acute embolism and thrombosis of deep veins of left upper extremity; N30.00 Acute cystitis without hematuria
CPT/HCPCS: 36415; 71045; 71275; 80053; 81001; 81025; 83690; 84484; 85025; 87086; 93005; 93970; 99284; Q9967; 81003

== ENCOUNTER 2023-06-17 08:26 | Outpatient (CLI) | payer OTHER ==
--- NOTE | 2023-06-17 12:38 | MRI Report ---
PROCEDURE: SHOULDER WO - LT INDICATIONS: PAIN IN LEFT SHOULDER TECHNIQUE: Noncontrast oblique coronal T2 fast spin echo with fat saturation, oblique sagittal T1 spin echo and T2 fast spin echo with fat saturation, axial T1 spin echo and T2 fast spin echo with fat saturation a nd 3-D gradient echo through the shoulder. COMPARISON: None. FINDINGS: Image quality: Excellent. Rotator cuff: There is mild to moderate supraspinatus and infraspinatus tendinosis. The teres minor is intact. Mild to moderate subscapularis tendinosis. No significant rotator cuff tendon tearing is s een. The rotator cuff musculature is normal in bulk. Bones and bursae: No acute trabecular bone injury or fracture. Mild cartilage irregularity of the po sterior glenoid..\ Minimal degenerative changes are seen at the acromioclavicular joint. There is a s mall amount of subacromial/subdeltoid bursal fluid. A physiologic amount of glenohumeral joint fluid is present. Capsule and soft tissues: Fluid signal in the anterosuperior labrum may be secondary to labral teari ng or a normal variant sublabral foramen. The proximal biceps long head tendon demonstrates mild tend inosis. There is partial effacement of the normal fat signal in the rotator interval. The anterior ba nd of the inferior glenohumeral ligament is mildly thickened. IMPRESSION: 1.Fluid signal at the anterosuperior labrum may be secondary to nondisplaced labral tearing versus a normal-variant sublabral foramen. 2.Mild tendinosis of the proximal biceps long head tendon. 3.Mild to moderate diffuse rotator cuff tendinosis. No significant rotator cuff tendon tearing is see n. 4.Mild grade 2 chondromalacia in the posterior glenoid. 5.Small subacromial/subdeltoid bursal effusion or mild bursitis. 6.Partial effacement of the rotator interval fat and mild thickening of the inferior glenohumeral lig ament are nonspecific, but can be seen in the setting of the clinical syndrome of adhesive capsulitis despite the presence of a small amount of glenohumeral joint fluid. Recommend clinical correlation. Reviewed by: Honorio Galvez MD on 06/17/2023 12:37 PM PDT Approved by: Honorio Galvez MD on 06/17/2023 12:37 PM PDT Station ID: [id number]
== END 2023-06-17 08:27 | disposition home or self-care (01) ==
LOC: DI 08:26
DX: M67.814 Other specified disorders of tendon, left shoulder (principal); M94.212 Chondromalacia, left shoulder

== ENCOUNTER 2024-05-01 08:59 | Outpatient (CLI) | payer OTHER ==
--- NOTE | 2024-05-04 00:08 | Ultrasound Report ---
PROCEDURE: Transvaginal INDICATIONS: TV ONLY - ABDOMINOPELVIC PAIN, HX ENDOMETRIOSIS TECHNIQUE: Real-time endovaginal scanning was performed of the pelvic organs, with image documentation. COMPARISON: None. FINDINGS: Uterus: Status post hysterectomy. Ovaries: Status post left oophorectomy. Right ovary measures 2.0 x 1.8 x 1.8 cm with a calculated ov earnest volume of 3.4 cc. Less than 12 follicles can be seen in the right ovary. No adnexal masses are seen. No cystic lesions measuring greater than 3 cm. Other: No pathologic free abdominal or pelvic fluid. IMPRESSION: Status post hysterectomy and left oophorectomy. Normal sonographic appearance of the right ovary. Reviewed by: Katharina Morgan MD, PhD on 05/04/2024 12:07 AM PDT Approved by: Katharina Morgan MD, PhD on 05/04/2024 12:07 AM PDT Station ID: [id number]
== END 2024-05-01 09:00 | disposition home or self-care (01) ==
LOC: DI 08:59
DX: R10.9 Unspecified abdominal pain (principal); Z90.710 Acquired absence of both cervix and uterus; Z90.721 Acquired absence of ovaries, unilateral